=== PATIENT | male | born 1965 | race Two or more races ===

== ENCOUNTER 2017-03-24 05:03 | Observation (INO) | payer OTHER ==
[2017-03-24] MEDS ORDERED: ONDANSETRON 4 MG/2 ML VIAL IVPUSH ONE (05:29)
[2017-03-24] MEDS ORDERED: FAMOTIDINE 20 MG/50 ML IVPB 50 ML IVPB ONE ×2 (05:29→05:48)
[2017-03-24] MEDS ORDERED: SODIUM CHLORIDE 1,000 ML IV STA (05:29)
[2017-03-24] MEDS ORDERED: PANTOPRAZOLE SODIUM 40 MG in SODIUM CHLORIDE 100 ML IVPB ONE (05:29)
--- NOTE | 2017-03-24 05:41 | PDOC ---
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 Patient states while trying to sleep last night, he was unable to and began experiencing trouble breathing. Patient denies CP, Back pain, n/v/d, fever, dysuria, hematuria, rectal bleeding or any other complaints at this time. Presenting Symptoms: Abdominal Pain, Short of Breath Timing/Duration: reports: getting worse Severity/Quality: reports: moderate Location: reports: abdomen Chest Pain Radiation: denies: no radiation, jaw, arms, neck, shoulders, back, sternal notch, epigastric, other Activities at Onset: reports: no specific activity Prior Chest Pain/Cardiac Workup: reports: Other (Aortic Valve Replacement.) Modifying Factors: worse with: antacids, breathing, coughing, defecating, eating , exercise, lying down, morphine, movement, nitroglycerin, oxygen, palpation, rest, other Nitro Today/Relief: No: no nitro taken today, 0.4 mg x 1, 0.4 mg x 2, 0.4 mg x 3 , 0.4 mg x 4, provided by EMS, provided by ED, provided at home, no relief, mild relief, complete relief Aspirin Received prior to arrival (Core Measure): Yes: 81 mg x 1, provided at home Past History - Travel Traveled outside of the country in the last 30 days: No Close contact w/someone who was outside of country & ill: No - Past Medical History Allergies/Adverse Reactions: Allergies Allergy/AdvReac Type Severity Reaction Status Date / Time No Known Allergies Allergy Verified 03/24/17 05:31 Home Medications: Ambulatory Orders Amlodipine Besylate [Norvasc -] 10 mg PO DAILY 03/24/17 Amoxicillin/Potassium Clav [Augmentin 875-125 Tablet] 1 each PO Q12H #28 tablet 03/24/17 Aspirin [ASA -] 81 mg PO DAILY 03/24/17 Prednisone [Deltasone -] 10 mg PO ASDIR #21 tab 03/24/17 Cardiac Disorders: Yes (MVP) Hypercholesterolemia: Yes - Surgical History Cardiac Surgery: Yes (CATH, VALVE REPLACEMENT 2012) - Psycho/Social/Smoking Cessation Hx Anxiety: No Suicidal Ideation: No Smoking History: Never smoked Hx Alcohol Use: Yes (OCC) Drug/Substance Use Hx: No Substance Use Type: None Hx Substance Use Treatment: No Review of Systems - Review of Systems Able to Perform ROS?: Yes Is the patient limited Gabonese proficient: No Constitutional: No: Chills, Fever Respiratory: Yes: Shortness of Breath, SOB at Rest. No: Cough, Stridor, Wheezing Cardiac (ROS): No: Chest Pain, Edema, Lightheadedness, Palpitations, Syncope, Chest Tightness ABD/GI: Yes: Abdominal cramping (Abdominal Pain w/ bloating). No: Constipated, Diarrhea, Nausea, Poor Appetite, Poor Fluid Intake, Rectal Bleeding, Vomiting, Tarry Stools : No: Dysuria, Hematuria Musculoskeletal: No: Back Pain Integumentary: No: Bruising, Erythema, Rash Neurological: No: Headache, Seizure, Dizziness All Other Systems: Reviewed and Negative *Physical Exam - Vital Signs Last Vital Signs Temp Pulse Resp BP Pulse Ox 97.8 F 86 18 129/83 99 03/24/17 05:04 03/24/17 05:04 03/24/17 05:04 03/24/17 05:04 03/24/17 05:04 - Physical Exam General Appearance: Yes: Nourished, Appropriately Dressed, Apparent Distress, Mild Distress. No: Moderate Distress, Severe Distress Neck: positive: Trachea midline, Supple. negative: Decreased range of motion, Stridor, Lymphadenopathy (R), Lymphadenopathy (L) Respiratory/Chest: positive: Lungs Clear, Normal Breath Sounds. negative: Chest Tender, Respiratory Distress, Accessory Muscle Use, Labored Respiration, Rapid RR, Stridor, Wheezing Cardiovascular: positive: Regular Rhythm, Regular Rate. negative: Edema Gastrointestinal/Abdominal: positive: Soft, Increased Bowel Sounds, Distended. negative: Tender, Guarding, Rebound, Tenderness Musculoskeletal: positive: Normal Inspection. negative: CVA Tenderness Extremity: positive: Normal Capillary Refill, Normal Inspection, Normal Range of Motion Integumentary: positive: Dry, Warm, Pale. negative: Cold, Clammy Neurologic: positive: bundle breaker II-XII NML intact, Fully Oriented, Alert, Normal Mood/ Affect, Normal Response, Motor Strength / Heart Score/ECG Review - History History: Slightly suspicious - Electrocardiogram EKG: Normal - Age Age: 45-65 - Risk Factors Risk Factors Heart Score: No Hx Hypercholesterolemia, Yes Hx Hypertension, No Hx Diabetes, No Smoking History, No Positive family hx of cardiac disease, No Hx Obesity Based on the list above the patient has:: 1-2 risk factors - Troponin Troponin: </= normal limit - Score Heart Score - Total: 2 - ECG Impressions Normal ECG: No Non-specific ST Elevation: No Ischemic Changes: No Torsades joan Pointes: No WPW: No Comment:: 03/24/17 06:43 Sinus Rhythm w/ 1 st degree AV Block rate 86bpm ED Treatment Course - LABORATORY CBC & Chemistry Diagram: 03/24/17 05:36 03/24/17 05:36 - ADDITIONAL ORDERS Additional order review: Laboratory Results 03/24/17 03/24/17 03/24/17 05:36 05:36 05:36 INR PTT (Actin FS) Sodium 140 Potassium 4.1 Chloride 104 Carbon Dioxide 28 Anion Gap 8 BUN 20 H D Creatinine 1.1 Creat Clearance w eGFR > 60 Random Glucose 135 H D Calcium 8.5 Total Bilirubin 1.0 D AST 27 ALT 49 Alkaline Phosphatase 44 L D Creatine Kinase 216 Creatine Kinase Index 1.9 CK-MB (CK-2) 3.998 H CK-MB (CK-2) Rel Index Cancelled Troponin I 0.03 Total Protein 7.4 Albumin 4.2 Total Amylase 48 Lipase 134 Urine Color Yellow Urine Appearance Clear Urine pH 5.0 Urine Protein 2+ H Urine Glucose (UA) Negative Urine Ketones Negative Urine Blood Negative Urine Nitrite Negative Urine Bilirubin Negative Urine Urobilinogen Negative Ur Leukocyte Esterase Negative Stool Occult Blood Negative 03/24/17 05:36 INR 1.25 H PTT (Actin FS) 30.5 Sodium Potassium Chloride Carbon Dioxide Anion Gap BUN Creatinine Creat Clearance w eGFR Random Glucose Calcium Total Bilirubin AST ALT Alkaline Phosphatase Creatine Kinase Creatine Kinase Index CK-MB (CK-2) CK-MB (CK-2) Rel Index Troponin I Total Protein Albumin Total Amylase Lipase Urine Color Urine Appearance Urine pH Urine Protein Urine Glucose (UA) Urine Ketones Urine Blood Urine Nitrite Urine Bilirubin Urine Urobilinogen Ur Leukocyte Esterase Stool Occult Blood 03/24/17 05:36 RBC 4.55 MCV 90.2 MCHC 32.9 RDW 14.6 D MPV 10.3 Neutrophils % 69.6 Lymphocytes % 21.7 D Monocytes % 7.5 Eosinophils % 0.8 D Basophils % 0.4 - RADIOLOGY Radiology Studies Ordered: Category Date Time Status ABDOMEN & PELVIS CT WITH CONTR [CT] Stat CT Scan 03/24/17 06:34 Ordered CHEST PA & LAT [RAD] Stat Radiology 03/24/17 05:29 Taken - Medications Given in the ED: ED Medications Discontinued Medications Generic Name Dose Route Start Last Admin Trade Name Nagaq PRN Reason Stop Dose Admin Pantoprazole Sodium 40 mg/ 100 mls @ 200 mls/hr 03/24/17 05:29 03/24/17 05:40 Sodium Chloride IVPB 03/24/17 05:58 200 mls/hr ONCE ONE Administration Famotidine/Sodium Chloride 50 mls @ 100 mls/hr 03/24/17 05:29 03/24/17 06:04 Pepcid 20 Mg Premixed Ivpb - IVPB 03/24/17 05:58 100 mls/hr ONCE ONE Administration Sodium Chloride 1,000 mls @ 1,000 mls/hr 03/24/17 05:29 03/24/17 06:04 Normal Saline - IV 03/24/17 06:28 1,000 mls/hr ASDIR STA Administration Ondansetron HCl 4 mg 03/24/17 05:29 03/24/17 05:40 Zofran Injection IVPUSH 03/24/17 05:30 4 mg ONCE ONE Administration *DC/Admit/Observation/Transfer - Prescriptions Prescriptions: Amoxicillin/Potassium Clav [Augmentin 875-125 Tablet] 1 each PO Q12H #28 tablet Prednisone [Deltasone -] 10 mg PO ASDIR #21 tab
[2017-03-24] MEDS ORDERED: ONDANSETRON 4 MG/2 ML VIAL ONE (05:48)
[2017-03-24] MEDS ORDERED: PANTOPRAZOLE SODIUM 40 MG VIAL ONE (05:48)
[2017-03-24 05:59] LABS: STOOL FOR OCCULT BLOOD NEGATIVE (NEGATIVE)
[2017-03-24 06:01] LABS: BASOPHIL 0.4 % (0-2.0); EOSINOPHIL 0.8 % (0-4.5); MCH 29.6 pg (25.7-33.7); MCHC 32.9 g/dl (32.0-35.9); MEAN CELL VOLUME 90.2 fl (80-96); MEAN PLT VOLUME 10.3 fl (7.5-11.1); NEUTROPHILS 69.6 % (42.8-82.8); PLATELET COUNT 151 K/MM3 (134-434); RDW 14.6 % (11.9-15.9)
[2017-03-24 06:02] LABS: URINE APPEARANCE CLEAR; URINE BILIRUBIN NEGATIVE (NEGATIVE); URINE BLOOD NEGATIVE (NEGATIVE); URINE COLOR YELLOW; URINE GLUCOSE (UA) NEGATIVE (NEGATIVE); URINE KETONE NEGATIVE (NEGATIVE); URINE LEUK ESTERASE NEGATIVE (NEGATIVE); URINE NITRITE NEGATIVE (NEGATIVE); URINE UROBILINOGEN NEGATIVE E.U./dl (0.2-1.0)
[2017-03-24 06:03] LABS: URINE PROTEIN 2+ (NEGATIVE)
[2017-03-24 06:16] LABS: INR 1.25 (0.82-1.09); PROTHROMBIN TIME (PATIENT) 13.8 SEC (9.98-11.88)
[2017-03-24 06:18] LABS: ACTIVATED PTT 30.5 SECONDS (26.9-34.4)
[2017-03-24 06:19] LABS: ALBUMIN 4.2 g/dl (3.4-5.0); AMYLASE 48 U/L (25-115); ANION GAP 8 (8-16); CALCIUM 8.5 mg/dL (8.5-10.1); CO2 28 mmol/L (21-32); COCKROFT - GAULT 112; CREATININE 1.1 mg/dL (0.7-1.3); GLUCOSE,RANDOM 135 mg/dL (74-106); SGOT/AST 27 U/L (15-37); SGPT/ALT 49 U/L (12-78); TOT PROT 7.4 g/dl (6.4-8.2)
[2017-03-24 06:22] LABS: ALK PHOS 44 U/L (45-117); TROPONIN I 0.03 ng/ml (0.00-0.05)
[2017-03-24] MEDS ORDERED: CEFTRIAXONE 1 GM in DEXTROSE 5%-WATER - 50 ML IVPB ONE (06:38)
[2017-03-24] MEDS ORDERED: AZITHROMYCIN IVPB 500 MG in DEXTROSE 5%-WATER - 250 ML IVPB ONE (06:38)
[2017-03-24] MEDS ORDERED: CEFTRIAXONE 50 ML ONE (06:40)
[2017-03-24] MEDS ORDERED: AZITHROMYCIN IVPB 250 ML IVPB ONE (06:40)
[2017-03-24] MEDS ORDERED: methylPREDNISolone NA SUCC 125 MG/2 ML VIAL IVPB ONE (07:01)
[2017-03-24] MEDS ORDERED: methylPREDNISolone NA SUCC 125 MG/2 ML VIAL ONE (07:02)
[2017-03-24 07:50] LABS: URINE MUCUS RARE; URINE RBC <1 /hpf (0-3); URINE WBC <1 /hpf (3-5)
--- NOTE | 2017-03-24 08:51 | PDOC ---
History of Present Illness - General Chief Complaint: Shortness of Breath Stated Complaint: DIFFICULTY BREATHING Time Seen by Provider: 03/24/17 05:21 History Source: Patient - History of Present Illness Timing/Duration: reports: yesterday Associated Symptoms: reports: shortness of breath. denies: chest pain/soreness , cough, fever/chills Past History - Past Medical History Allergies/Adverse Reactions: Allergies Allergy/AdvReac Type Severity Reaction Status Date / Time No Known Allergies Allergy Verified 03/24/17 05:31 Home Medications: Ambulatory Orders Amlodipine Besylate [Norvasc -] 10 mg PO DAILY 03/24/17 Amoxicillin/Potassium Clav [Augmentin 875-125 Tablet] 1 each PO Q12H #28 tablet 03/24/17 Aspirin [ASA -] 81 mg PO DAILY 03/24/17 Prednisone [Deltasone -] 10 mg PO ASDIR #21 tab 03/24/17 Cardiac Disorders: Yes (MVP) Diabetes: No HTN: Yes Hypercholesterolemia: No - Surgical History Cardiac Surgery: Yes (CATH, VALVE REPLACEMENT 2012) - Psycho/Social/Smoking Cessation Hx Anxiety: No Suicidal Ideation: No Smoking History: Never smoked Hx Alcohol Use: Yes (OCC) Drug/Substance Use Hx: No Substance Use Type: None Hx Substance Use Treatment: No Review of Systems - Review of Systems Is the patient limited Estonian proficient: No *Physical Exam - Vital Signs Last Vital Signs Temp Pulse Resp BP Pulse Ox 97.8 F 86 18 129/83 99 03/24/17 05:04 03/24/17 05:04 03/24/17 05:04 03/24/17 05:04 03/24/17 05:04 - Physical Exam General Appearance: Yes: Appropriately Dressed. No: Apparent Distress HEENT: positive: Normal Voice Neck: positive: Supple Respiratory/Chest: negative: Respiratory Distress Gastrointestinal/Abdominal: positive: Soft. negative: Tender Extremity: positive: Normal Inspection Integumentary: positive: Dry, Warm Neurologic: positive: Fully Oriented, Alert, Normal Mood/Affect ED Treatment Course - LABORATORY CBC & Chemistry Diagram: 03/24/17 05:36 03/24/17 05:36 - ADDITIONAL ORDERS Additional order review: Laboratory Results 03/24/17 03/24/17 03/24/17 05:36 05:36 05:36 INR PTT (Actin FS) Sodium 140 Potassium 4.1 Chloride 104 Carbon Dioxide 28 Anion Gap 8 BUN 20 H D Creatinine 1.1 Creat Clearance w eGFR > 60 Random Glucose 135 H D Calcium 8.5 Total Bilirubin 1.0 D AST 27 ALT 49 Alkaline Phosphatase 44 L D Creatine Kinase 216 Creatine Kinase Index 1.9 CK-MB (CK-2) 3.998 H CK-MB (CK-2) Rel Index Cancelled Troponin I 0.03 Total Protein 7.4 Albumin 4.2 Total Amylase 48 Lipase 134 Urine Color Urine Appearance Urine pH Urine Protein Urine Glucose (UA) Urine Ketones Urine Blood Urine Nitrite Urine Bilirubin Urine Urobilinogen Ur Leukocyte Esterase Urine RBC Urine WBC Urine Mucus Stool Occult Blood Blood Type A POSITIVE Antibody Screen Negative 03/24/17 03/24/17 05:36 05:36 INR 1.25 H PTT (Actin FS) 30.5 Sodium Potassium Chloride Carbon Dioxide Anion Gap BUN Creatinine Creat Clearance w eGFR Random Glucose Calcium Total Bilirubin AST ALT Alkaline Phosphatase Creatine Kinase Creatine Kinase Index CK-MB (CK-2) CK-MB (CK-2) Rel Index Troponin I Total Protein Albumin Total Amylase Lipase Urine Color Yellow Urine Appearance Clear Urine pH 5.0 Urine Protein 2+ H Urine Glucose (UA) Negative Urine Ketones Negative Urine Blood Negative Urine Nitrite Negative Urine Bilirubin Negative Urine Urobilinogen Negative Ur Leukocyte Esterase Negative Urine RBC <1 Urine WBC <1 Urine Mucus Rare Stool Occult Blood Negative Blood Type Antibody Screen 03/24/17 05:36 RBC 4.55 MCV 90.2 MCHC 32.9 RDW 14.6 D MPV 10.3 Neutrophils % 69.6 Lymphocytes % 21.7 D Monocytes % 7.5 Eosinophils % 0.8 D Basophils % 0.4 - Medications Given in the ED: ED Medications Discontinued Medications Generic Name Dose Route Start Last Admin Trade Name Freq PRN Reason Stop Dose Admin Pantoprazole Sodium 40 mg/ 100 mls @ 200 mls/hr 03/24/17 05:29 03/24/17 05:40 Sodium Chloride IVPB 03/24/17 05:58 200 mls/hr ONCE ONE Administration Famotidine/Sodium Chloride 50 mls @ 100 mls/hr 03/24/17 05:29 03/24/17 06:04 Pepcid 20 Mg Premixed Ivpb - IVPB 03/24/17 05:58 100 mls/hr ONCE ONE Administration Sodium Chloride 1,000 mls @ 1,000 mls/hr 03/24/17 05:29 03/24/17 06:04 Normal Saline - IV 03/24/17 06:28 1,000 mls/hr ASDIR STA Administration Azithromycin 500 mg/ Dextrose 250 mls @ 250 mls/hr 03/24/17 06:38 03/24/17 07: 01 IVPB 03/24/17 07:37 250 mls/hr ONCE ONE Administration Ceftriaxone Sodium 1 gm/ 50 mls @ 100 mls/hr 03/24/17 06:38 03/24/17 06:38 Dextrose IVPB 03/24/17 07:07 100 mls/hr ONCE ONE Administration Methylprednisolone Sodium Succinate 125 mg 03/24/17 07:01 03/24/17 07:01 Solu-Medrol - IVPB 03/24/17 07:02 125 mg ONCE ONE Administration Ondansetron HCl 4 mg 03/24/17 05:29 03/24/17 05:40 Zofran Injection IVPUSH 03/24/17 05:30 4 mg ONCE ONE Administration Medical Decision Making - Medical Decision Making 03/24/17 08:49 Pt signed out to me at 7am 51-year-old male, history of hypertension, aortic valve replacement, presented to ED with shortness of breath, abdominal pain and bloating. As per prior team chest x-ray revealed pneumonia and patient was treated for CAP. On review of labs, final read of chest x-ray consistence with CHF, no infiltrates seen. BNP pending. Will contact cardiology 03/24/17 08:59 On reassessment, pt well leonard and only reports persistent abd bloating at this time, no abd pain. No edema. As per , the last time pt presented like this, he had his AVR. Pt states he was on lasix while residing in the but not on meds currently. F/u with Dr King. Will contact . BNP pending 03/24/17 09:52 CT w/ signs suggestive of CHF, no acute GI pathology. 03/24/17 10:26 BNP>1800. Will give dose of IV lasix here and discuss dispo w/ cards 03/24/17 11:47 Case d/w Dr Toro, states he will come see pt in ED. to order echo 03/24/17 12:44 Pt admitted to hospitalist *DC/Admit/Observation/Transfer Diagnosis at time of Disposition: Acute on chronic congestive heart failure - Discharge Dispostion Condition at time of disposition: Good Admit: Yes - Prescriptions Prescriptions: Amoxicillin/Potassium Clav [Augmentin 875-125 Tablet] 1 each PO Q12H #28 tablet Prednisone [Deltasone -] 10 mg PO ASDIR #21 tab - Referrals Referrals: Abiodun Forbes MD [Primary Care Provider] - - Patient Instructions - Post Discharge Activity
[2017-03-24] MEDS ORDERED: FUROSEMIDE 40 MG/4 ML INJECTABLE VIAL IVPUSH ONE (10:26)
[2017-03-24] MEDS ORDERED: FUROSEMIDE 40 MG/4 ML INJECTABLE VIAL ONE (11:42)
--- NOTE | 2017-03-24 12:47 | HP ---
CHIEF COMPLAINT: shortness of breath and abd discomfort. PCP: chart says Dr. Haddad however, when ER staff spoke with physician, he states that pt is not his and he needed to be admitted to hospitalist service. HISTORY OF PRESENT ILLNESS: This 51-year-old male, who has a history of hypertension, aortic valve replacement, presented to ED with shortness of breath, abdominal pain and bloating for three days worsening at night with orthopnea noted. Pt found to have elevated BNP, noncompliant with meds including lasix at home and CXR with noted vascular congestion. Pt denies chest pain, dyspnea, nausea, vomiting, fever, chills While in ER abd/pelvic CT performed without any cause noted for abd bloating. He was given a dose of antibiotics suspicious for PNA however after official reading noted to have CHF and no need for ABT Cardiology seen pt while in ER, Dr. Toro, requesting a ECHO which is now ordered. Recent Travel: Social History: Smoking:denies Alcohol: social Drugs: denies Family History: Allergies No Known Allergies Allergy (Verified 03/24/17 05:31) HOME MEDICATIONS: Home Medications Medication Instructions Recorded Amlodipine Besylate [Norvasc -] 10 mg PO DAILY 03/24/17 Amoxicillin/Potassium Clav 1 each PO Q12H #28 tablet 03/24/17 [Augmentin 875-125 Tablet] Aspirin [ASA -] 81 mg PO DAILY 03/24/17 Prednisone [Deltasone -] 10 mg PO ASDIR #21 tab 03/24/17 REVIEW OF SYSTEMS CONSTITUTIONAL: Absent: fever, chills, diaphoresis, generalized weakness, malaise, loss of appetite, weight change HEENT: Absent: rhinorrhea, nasal congestion, throat pain, throat swelling, difficulty swallowing, mouth swelling, ear pain, eye pain, visual changes CARDIOVASCULAR: Absent: chest pain, syncope, palpitations, irregular heart rate, lightheadedness , peripheral edema RESPIRATORY: Absent: cough,(+) shortness of breath,(+) dyspnea with exertion, (+)orthopnea, wheezing, stridor, hemoptysis GASTROINTESTINAL: Absent: abdominal pain, abdominal distension, nausea, vomiting, diarrhea, constipation, melena, hematochezia GENITOURINARY: Absent: dysuria, frequency, urgency, hesitancy, hematuria, flank pain, genital pain MUSCULOSKELETAL: Absent: myalgia, arthralgia, joint swelling, back pain, neck pain SKIN: Absent: rash, itching, pallor HEMATOLOGIC/IMMUNOLOGIC: Absent: easy bleeding, easy bruising, lymphadenopathy, frequent infections ENDOCRINE: Absent: unexplained weight gain, unexplained weight loss, heat intolerance, cold intolerance NEUROLOGIC: Absent: headache, focal weakness or paresthesias, dizziness, unsteady gait, seizure, mental status changes, bladder or bowel incontinence PSYCHIATRIC: Absent: anxiety, depression, suicidal or homicidal ideation, hallucinations. PHYSICAL EXAMINATION Vital Signs - 24 hr 03/24/17 03/24/17 05:04 10:30 Temperature 97.8 F Pulse Rate 86 Pulse Rate [ 90 Carotid] Respiratory 18 20 Rate Blood Pressure 129/83 Blood Pressure 131/95 [Right Arm] O2 Sat by Pulse 99 100 Oximetry (%) GENERAL: Awake, alert, and fully oriented, in no acute distress. HEAD: Normal with no signs of trauma. EYES: Pupils equal, round and reactive to light, extraocular movements intact, sclera anicteric, conjunctiva clear. No lid lag. EARS, NOSE, THROAT: Ears normal, nares patent, oropharynx clear without exudates. Moist mucous membranes. NECK: Normal range of motion, supple without lymphadenopathy, JVD, or masses. LUNGS: Breath sounds equal, congested to auscultation bilaterally. No wheezes, and no crackles. No accessory muscle use. HEART: Regular rate and rhythm, normal S1 and S2 without murmur, rub or gallop. ABDOMEN: Soft, nontender, not distended, normoactive bowel sounds, no guarding, no rebound, no masses. No hepatomegaly or splenomegaly. MUSCULOSKELETAL: Normal range of motion at all joints. No bony deformities or tenderness. No CVA tenderness. UPPER EXTREMITIES: 2+ pulses, warm, well-perfused. No cyanosis. No clubbing. No peripheral edema. LOWER EXTREMITIES: 2+ pulses, warm, well-perfused. No calf tenderness. No peripheral edema. NEUROLOGICAL: Cranial nerves II-XII intact. Normal speech. Normal gait. PSYCHIATRIC: Cooperative. Good eye contact. Appropriate mood and affect. SKIN: Warm, dry, normal turgor, no rashes or lesions noted, normal capillary refill. Laboratory Results - last 24 hr 03/24/17 03/24/17 03/24/17 05:36 05:36 05:36 WBC 6.0 RBC 4.55 Hgb 13.5 Hct 41.0 MCV 90.2 MCHC 32.9 RDW 14.6 D Plt Count 151 MPV 10.3 Neutrophils % 69.6 Lymphocytes % 21.7 D Monocytes % 7.5 Eosinophils % 0.8 D Basophils % 0.4 INR 1.25 H PTT (Actin FS) 30.5 Sodium Potassium Chloride Carbon Dioxide Anion Gap BUN Creatinine Creat Clearance w eGFR Random Glucose Calcium Total Bilirubin AST ALT Alkaline Phosphatase Creatine Kinase Creatine Kinase Index CK-MB (CK-2) CK-MB (CK-2) Rel Index Troponin I B-Natriuretic Peptide Total Protein Albumin Total Amylase Lipase Urine Color Yellow Urine Appearance Clear Urine pH 5.0 [address] [place] 1.025 Urine Protein 2+ H Urine Glucose (UA) Negative Urine Ketones Negative Urine Blood Negative Urine Nitrite Negative Urine Bilirubin Negative Urine Urobilinogen Negative Ur Leukocyte Esterase Negative Urine RBC <1 Urine WBC <1 Urine Mucus Rare Stool Occult Blood Negative Blood Type Antibody Screen 03/24/17 03/24/17 03/24/17 05:36 05:36 05:36 WBC RBC Hgb Hct MCV MCHC RDW Plt Count MPV Neutrophils % Lymphocytes % Monocytes % Eosinophils % Basophils % INR PTT (Actin FS) Sodium 140 Potassium 4.1 Chloride 104 Carbon Dioxide 28 Anion Gap 8 BUN 20 H D Creatinine 1.1 Creat Clearance w eGFR > 60 Random Glucose 135 H D Calcium 8.5 Total Bilirubin 1.0 D AST 27 ALT 49 Alkaline Phosphatase 44 L D Creatine Kinase 216 Creatine Kinase Index 1.9 CK-MB (CK-2) 3.998 H CK-MB (CK-2) Rel Index Cancelled Troponin I 0.03 B-Natriuretic Peptide 1890.11 H Total Protein 7.4 Albumin 4.2 Total Amylase 48 Lipase 134 Urine Color Urine Appearance Urine pH Ur Specific [place] Urine Protein Urine Glucose (UA) Urine Ketones Urine Blood Urine Nitrite Urine Bilirubin Urine Urobilinogen Ur Leukocyte Esterase Urine RBC Urine WBC Urine Mucus Stool Occult Blood Blood Type A POSITIVE Antibody Screen Negative ASSESSMENT/PLAN: This 51 yr old male who is non compliant with medications and following with his PMD, presents to ER with a finding of CHF excerbation and a PMH of CHF 1. CHF -continue lasix daily (recieved 40 iv in ER) -echo per cards -appreciate cards consult -daily weight -strict I and O -no further ABT needed at this time -meds per cards -admit to tele inpatient. Visit type - Emergency Visit Emergency Visit: Yes ED Registration Date: 03/24/17 Care time: The patient presented to the Emergency Department on the above date and was hospitalized for further evaluation of their emergent condition. - New Patient This patient is new to me today: Yes Date on this admission: 03/24/17 - Critical Care Critical Care patient: No
--- NOTE | 2017-03-24 12:49 | EKG ---
Test Reason : Blood Pressure : / mmHG Vent. Rate : 086 BPM Atrial Rate : 086 BPM P-R Int : 280 ms QRS Dur : 100 ms QT Int : 394 ms P-R-T Axes : 032 031 052 degrees QTc Int : 471 ms SINUS RHYTHM WITH 1ST DEGREE A-V BLOCK POSSIBLE LEFT ATRIAL ENLARGEMENT BORDERLINE ECG NO PREVIOUS ECGS AVAILABLE Confirmed by JAYDEN SAUNDERS MD ([id number]) on 03/24/2017 12:48:25 PM Referred By: Confirmed By:JAYDEN SAUNDERS MD
--- NOTE | 2017-03-24 13:08 | CON.CARD ---
Consult Consult Specialty:: Cardiology - History of Present Illness History of Present Illness: 51yo Male patient w/ PmHx: HTN, Mitral and aortic valce replacements severely reduced EF presents to ED c/o diff breathing, abd pain/bloating x 3 days, and insomnia. Patient states while trying to sleep last night, he was unable to and began experiencing trouble breathing. Patient denies CP, Back pain, n/v/d, fever , dysuria, hematuria, rectal bleeding or any other complaints at this time. - History Source History Provided By: Patient, Medical Record - Past Medical History Cardio/Vascular: Yes: CHF, HTN, Other (s/p mvr/avr) - Alcohol/Substance Use Hx Alcohol Use: Yes (OCC) - Smoking History Smoking history: Never smoked Home Medications - Allergies Allergies/Adverse Reactions: Allergies Allergy/AdvReac Type Severity Reaction Status Date / Time No Known Allergies Allergy Verified 03/24/17 05:31 - Home Medications Home Medications: Ambulatory Orders Amlodipine Besylate [Norvasc -] 10 mg PO DAILY 03/24/17 Amoxicillin/Potassium Clav [Augmentin 875-125 Tablet] 1 each PO Q12H #28 tablet 03/24/17 Aspirin [ASA -] 81 mg PO DAILY 03/24/17 Prednisone [Deltasone -] 10 mg PO ASDIR #21 tab 03/24/17 Review of Systems - Review of Systems Constitutional: reports: No Symptoms Eyes: reports: No Symptoms HENT: reports: No Symptoms Neck: reports: No Symptoms Cardiovascular: reports: No Symptoms Respiratory: reports: SOB, SOB on Exertion Gastrointestinal: reports: No Symptoms Genitourinary: reports: No Symptoms Breasts: reports: No Symptoms Reported Musculoskeletal: reports: No Symptoms Integumentary: reports: No Symptoms Neurological: reports: No Symptoms Endocrine: reports: No Symptoms Hematology/Lymphatic: reports: No Symptoms Psychiatric: reports: No Symptoms Vital Signs: Vital Signs Temperature 97.8 F 03/24/17 05:04 Pulse Rate 90 03/24/17 10:30 Respiratory Rate 20 03/24/17 10:30 Blood Pressure 131/95 03/24/17 10:30 O2 Sat by Pulse Oximetry (%) 100 03/24/17 10:30 Constitutional: Yes: Well Nourished, No Distress, Calm Eyes: Yes: WNL, Conjunctiva Clear, EOM Intact HENT: Yes: WNL, Atraumatic, Normocephalic Neck: Yes: WNL, Supple, Trachea Midline Respiratory: Yes: WNL, Regular, CTA Bilaterally Gastrointestinal: Yes: WNL, Normal Bowel Sounds Renal/: Yes: WNL Cardiovascular: Yes: WNL, Regular Rate and Rhythm Heart Sounds: Yes: S1, S2 Musculoskeletal: Yes: WNL Extremities: Yes: WNL Integumentary: Yes: WNL Neurological: Yes: WNL, Alert, Oriented ...Motor Strength: WNL Psychiatric: Yes: WNL, Alert, Oriented - Other Data Labs, Other Data: INR, PTT INR 1.25 (0.82-1.09) H 03/24/17 05:36 Laboratory Tests 03/24/17 03/24/17 03/24/17 05:36 05:36 05:36 WBC 6.0 RBC 4.55 Hgb 13.5 Hct 41.0 MCV 90.2 MCHC 32.9 RDW 14.6 D Plt Count 151 MPV 10.3 Neutrophils % 69.6 Lymphocytes % 21.7 D Monocytes % 7.5 Eosinophils % 0.8 D Basophils % 0.4 INR 1.25 H PTT (Actin FS) 30.5 Sodium Potassium Chloride Carbon Dioxide Anion Gap BUN Creatinine Creat Clearance w eGFR Random Glucose Calcium Total Bilirubin AST ALT Alkaline Phosphatase Creatine Kinase Creatine Kinase Index CK-MB (CK-2) CK-MB (CK-2) Rel Index Troponin I B-Natriuretic Peptide Total Protein Albumin Total Amylase Lipase Urine Color Yellow Urine Appearance Clear Urine pH 5.0 Ur Specific [place] 1.025 Urine Protein 2+ H Urine Glucose (UA) Negative Urine Ketones Negative Urine Blood Negative Urine Nitrite Negative Urine Bilirubin Negative Urine Urobilinogen Negative Ur Leukocyte Esterase Negative Urine RBC <1 Urine WBC <1 Urine Mucus Rare Stool Occult Blood Negative Blood Type Antibody Screen 03/24/17 03/24/17 03/24/17 05:36 05:36 05:36 WBC RBC Hgb Hct MCV MCHC RDW Plt Count MPV Neutrophils % Lymphocytes % Monocytes % Eosinophils % Basophils % INR PTT (Actin FS) Sodium 140 Potassium 4.1 Chloride 104 Carbon Dioxide 28 Anion Gap 8 BUN 20 H D Creatinine 1.1 Creat Clearance w eGFR > 60 Random Glucose 135 H D Calcium 8.5 Total Bilirubin 1.0 D AST 27 ALT 49 Alkaline Phosphatase 44 L D Creatine Kinase 216 Creatine Kinase Index 1.9 CK-MB (CK-2) 3.998 H CK-MB (CK-2) Rel Index Cancelled Troponin I 0.03 B-Natriuretic Peptide 1890.11 H Total Protein 7.4 Albumin 4.2 Total Amylase 48 Lipase 134 Urine Color Urine Appearance Urine pH Ur Specific [place] Urine Protein Urine Glucose (UA) Urine Ketones Urine Blood Urine Nitrite Urine Bilirubin Urine Urobilinogen Ur Leukocyte Esterase Urine RBC Urine WBC Urine Mucus Stool Occult Blood Blood Type A POSITIVE Antibody Screen Negative Imaging - Results Chest X-ray: Image Reviewed (cm s/p mvr chf) EKG: Image Reviewed (sr rep abn) Assessment/Plan non ischemic valvular CMP h/io MVP/severe MR s/p MVR bioprosthetic 2012 Dilated LV with severely reduced EF, apex not well visualized / apical thrombus cannot be r/o systolic chf acute noncomplience with rx and f/u plan IV lasix telemetry hailey I coreg will f/u
[2017-03-24 14:36] VITALS: BMI 28.8
[2017-03-24 14:50] LABS: TROPONIN I 0.02 ng/ml (0.00-0.05)
[2017-03-24] MEDS: CARVEDILOL 3.125 MG TABLET (FP) PO SCH ×2 (16:03→22:14)
[2017-03-24] MEDS: QUINAPRIL HCL 5 MG TABLET (FP) PO SCH (16:04)
[2017-03-24] MEDS: HEPARIN NA (PORCINE) 5,000 UNITS/ML 1ML VIAL SQ SCH ×2 (16:04→22:14)
[2017-03-24] MEDS ORDERED: diphenhydrAMINE HCL 25 MG CAPSULE (FP) PO PRN (22:15)
[2017-03-25] MEDS: HEPARIN NA (PORCINE) 5,000 UNITS/ML 1ML VIAL SQ SCH (06:29)
[2017-03-25 07:56] LABS: ALBUMIN 3.9 g/dl (3.4-5.0); ANION GAP 6 (8-16); CO2 31 mmol/L (21-32); GLUCOSE,RANDOM 97 mg/dL (74-106)
[2017-03-25 08:00] LABS: MCH 30.3 pg (25.7-33.7); MCHC 33.4 g/dl (32.0-35.9); MEAN CELL VOLUME 90.8 fl (80-96); MEAN PLT VOLUME 10.7 fl (7.5-11.1); PLATELET COUNT 132 K/MM3 (134-434); RDW 14.2 % (11.9-15.9); WHITE BLOOD COUNT 5.5 K/mm3 (4.0-10.0)
[2017-03-25 08:04] LABS: ALK PHOS 45 U/L (45-117); BILIRUBIN,TOTAL 1.3 mg/dL (0.2-1.0); COCKROFT - GAULT 104.19; CREATININE 1.2 mg/dL (0.7-1.3); SGOT/AST 25 U/L (15-37); SGPT/ALT 48 U/L (12-78); TOT PROT 7.2 g/dl (6.4-8.2)
[2017-03-25 08:41] VITALS: BP 127/83; PULSE 79; TEMP 98.1
[2017-03-25] MEDS: CARVEDILOL 3.125 MG TABLET (FP) PO SCH (09:33)
[2017-03-25] MEDS: QUINAPRIL HCL 5 MG TABLET (FP) PO SCH (09:33)
--- NOTE | 2017-03-25 09:47 | PN ---
Progress Note, Physician Chief Complaint: Pt A&Ox3; no chest pain, dizziness, or shortness of breath. History of Present Illness: 51yo Male (b. [facility]) w/ PmHx:nonobstructive cardiomyopathy ( normal coronaries and bioprosthetic MV replacement 2013 in the [facility]), HTN, came to ED c/o diff breathing, abd pain/bloating x 3 days, and insomnia. Patient states while trying to sleep last night, he was unable to and began experiencing trouble breathing. Patient denies CP, Back pain, n/v/d, fever, dysuria, hematuria, rectal bleeding or any other complaints at this time. Presenting Symptoms: Abdominal Pain, Short of Breath Timing/Duration: reports: getting worse Severity/Quality: reports: moderate Location: reports: abdomen Chest Pain Radiation: denies: no radiation, jaw, arms, neck, shoulders, back, sternal notch, epigastric, other - Current Medication List Current Medications: Active Medications Amlodipine Besylate (Norvasc -) 10 mg PO DAILY [facility] Last Admin: 03/25/17 09:33 Dose: 10 mg Aspirin (Asa -) 81 mg PO DAILY [facility] Last Admin: 03/25/17 09:33 Dose: 81 mg Carvedilol (Coreg -) 3.125 mg PO BID [facility] Last Admin: 03/25/17 09:33 Dose: 3.125 mg Diphenhydramine HCl (Benadryl -) 25 mg PO HS PRN PRN Reason: INSOMNIA Last Admin: 03/24/17 22:49 Dose: 25 mg Furosemide (Lasix Injection -) 40 mg IVPB DAILY [facility] Last Admin: 03/25/17 09:33 Dose: 40 mg Heparin Sodium (Porcine) (Heparin -) 5,000 unit SQ TID [facility] Last Admin: 03/25/17 06:29 Dose: 5,000 unit Quinapril HCl (Accupril -) 5 mg PO DAILY [facility] Last Admin: 03/25/17 09:33 Dose: 5 mg - Objective Vital Signs: Vital Signs Temperature 98.1 F 03/25/17 08:40 Pulse Rate 79 03/25/17 08:40 Respiratory Rate 20 03/25/17 08:40 Blood Pressure 127/83 03/25/17 08:40 O2 Sat by Pulse Oximetry (%) 96 03/24/17 21:00 Constitutional: Yes: Well Nourished, Anxious Eyes: Yes: WNL HENT: Yes: WNL Neck: Yes: WNL Cardiovascular: Yes: Regular Rate and Rhythm, S1 (split) Respiratory: Yes: Regular Gastrointestinal: Yes: Soft ...Rectal Exam: Yes: Deferred Genitourinary: No: Anuria Breast(s): Yes: WNL Musculoskeletal: Yes: WNL Extremities: Yes: WNL Edema: No Peripheral Pulses WNL: Yes Integumentary: Yes: WNL Neurological: Yes: WNL Psychiatric: Yes: WNL Labs: CBC, BMP 03/25/17 05:35 03/25/17 05:35 INR, PTT INR 1.25 (0.82-1.09) H 03/24/17 05:36 Abnormal Lab Results 03/24/17 03/25/17 03/25/17 05:36 05:35 05:35 Plt Count 132 L Anion Gap 6 L BUN 19 H Total Bilirubin 1.3 H D B-Natriuretic Peptide 1890.11 H 1891.30 H - ....Imaging Chest X-ray: Image Reviewed EKG: Image Reviewed (NSR; 1st degree AVBlock) Problem List - Problems (1) Acute on chronic systolic (congestive) heart failure Assessment/Plan: Nonischemic cardiomyopathy (patent coronary arteries on 2013 angioigram); severely reduced LVEF. S/p bioprosthetic MV replacement. Continue carvedilol, lisinoptil, and furosemide.; add spironolactone. From a caediac standpoint, pt may be followed as an outpatient; medication doses will be optimized over the next several weeks. If LVEF does not improve after optimization, pt will require an ICD. This was discussed with him today; Code(s): I50.23 - ACUTE ON CHRONIC SYSTOLIC (CONGESTIVE) HEART FAILURE (2) History of mitral valve replacement with bioprosthetic valve Code(s): Z95.3 - PRESENCE OF XENOGENIC HEART VALVE (3) HTN (hypertension) Code(s): I10 - ESSENTIAL (PRIMARY) HYPERTENSION
[2017-03-25] MEDS ORDERED: SPIRONOLACTONE 25 MG TABLET (FP) PO SCH (10:00)
[2017-03-25] MEDS ORDERED: FUROSEMIDE 40 MG/4 ML INJECTABLE VIAL IVPB SCH (10:00)
[2017-03-25] MEDS ORDERED: ASPIRIN 81 MG CHEWABLE TABLETS PO SCH (10:00)
[2017-03-25] MEDS ORDERED: FUROSEMIDE 20 MG TABLET (FP) PO SCH (10:00)
[2017-03-25] MEDS ORDERED: amLODIPine BESYLATE 10 MG TABLET (FP) PO SCH (10:00)
--- NOTE | 2017-03-26 22:09 | DS ---
Physical Exam: SUBJECTIVE: Patient seen and examined at bedside. He denies all c/o and has been cleared by cards. OBJECTIVE: PHYSICAL EXAM GENERAL: The patient is awake, alert, and fully oriented, in no acute distress. HEAD: Normal with no signs of trauma. EYES: PERRL, extraocular movements intact, sclera anicteric, conjunctiva clear. ENT: Ears normal, nares patent, oropharynx clear without exudates, moist mucous membranes. NECK: Trachea midline, full range of motion, supple. LUNGS: Breath sounds equal, clear to auscultation bilaterally, no wheezes, no crackles, no accessory muscle use. HEART: Regular rate and rhythm, S1, S2 without murmur, rub or gallop. ABDOMEN: Soft, nontender, nondistended, normoactive bowel sounds, no guarding, no rebound, no hepatosplenomegaly, no masses. EXTREMITIES: 2+ pulses, warm, well-perfused, no edema. NEUROLOGICAL: Cranial nerves II through XII grossly intact. Normal speech, gait not observed. PSYCH: Normal mood, normal affect. SKIN: Warm, dry, normal turgor, no rashes or lesions noted. LABS Laboratory Tests 3 03/24/17 03/24/17 03/24/17 05:36 05:36 05:36 WBC 6.0 RBC 4.55 Hgb 13.5 Hct 41.0 MCV 90.2 MCHC 32.9 RDW 14.6 D Plt Count 151 MPV 10.3 Neutrophils % 69.6 Lymphocytes % 21.7 D Monocytes % 7.5 Eosinophils % 0.8 D Basophils % 0.4 INR 1.25 H PTT (Actin FS) 30.5 Sodium Potassium Chloride Carbon Dioxide Anion Gap BUN Creatinine Creat Clearance w eGFR Random Glucose Calcium Total Bilirubin AST ALT Alkaline Phosphatase Creatine Kinase Creatine Kinase Index CK-MB (CK-2) CK-MB (CK-2) Rel Index Troponin I B-Natriuretic Peptide Total Protein Albumin Total Amylase Lipase Urine Color Yellow Urine Appearance Clear Urine pH 5.0 Ur Specific [place] 1.025 Urine Protein 2+ H Urine Glucose (UA) Negative Urine Ketones Negative Urine Blood Negative Urine Nitrite Negative Urine Bilirubin Negative Urine Urobilinogen Negative Ur Leukocyte Esterase Negative Urine RBC <1 Urine WBC <1 Urine Mucus Rare Stool Occult Blood Negative Blood Type Antibody Screen 3 05/24/17 05/24/17 05/24/17 05:36 05:36 05:36 WBC RBC Hgb Hct MCV MCHC RDW Plt Count MPV Neutrophils % Lymphocytes % Monocytes % Eosinophils % Basophils % INR PTT (Actin FS) Sodium 140 Potassium 4.1 Chloride 104 Carbon Dioxide 28 Anion Gap 8 BUN 20 H D Creatinine 1.1 Creat Clearance w eGFR > 60 Random Glucose 135 H D Calcium 8.5 Total Bilirubin 1.0 D AST 27 ALT 49 Alkaline Phosphatase 44 L D Creatine Kinase 216 Creatine Kinase Index 1.9 CK-MB (CK-2) 3.998 H CK-MB (CK-2) Rel Index Cancelled Troponin I 0.03 B-Natriuretic Peptide 1890.11 H Total Protein 7.4 Albumin 4.2 Total Amylase 48 Lipase 134 Urine Color Urine Appearance Urine pH Ur Specific [place] Urine Protein Urine Glucose (UA) Urine Ketones Urine Blood Urine Nitrite Urine Bilirubin Urine Urobilinogen Ur Leukocyte Esterase Urine RBC Urine WBC Urine Mucus Stool Occult Blood Blood Type A POSITIVE Antibody Screen Negative 3 03/24/17 03/24/17 03/25/17 13:37 13:37 05:35 WBC 5.5 RBC 4.72 Hgb 14.3 Hct 42.9 MCV 90.8 MCHC 33.4 RDW 14.2 Plt Count 132 L MPV 10.7 Neutrophils % Lymphocytes % Monocytes % Eosinophils % Basophils % INR PTT (Actin FS) Sodium Potassium Chloride Carbon Dioxide Anion Gap BUN Creatinine Creat Clearance w eGFR Random Glucose Calcium Total Bilirubin AST ALT Alkaline Phosphatase Creatine Kinase 192 Creatine Kinase Index 1.7 CK-MB (CK-2) 3.406 CK-MB (CK-2) Rel Index Cancelled Troponin I 0.02 D B-Natriuretic Peptide Total Protein Albumin Total Amylase Lipase Urine Color Urine Appearance Urine pH Ur Specific [place] Urine Protein Urine Glucose (UA) Urine Ketones Urine Blood Urine Nitrite Urine Bilirubin Urine Urobilinogen Ur Leukocyte Esterase Urine RBC Urine WBC Urine Mucus Stool Occult Blood Blood Type Antibody Screen 3 03/25/17 05:35 WBC RBC Hgb Hct MCV MCHC RDW Plt Count MPV Neutrophils % Lymphocytes % Monocytes % Eosinophils % Basophils % INR PTT (Actin FS) Sodium 141 Potassium 4.3 Chloride 104 Carbon Dioxide 31 Anion Gap 6 L BUN 19 H Creatinine 1.2 Creat Clearance w eGFR > 60 Random Glucose 97 D Calcium 9.0 Total Bilirubin 1.3 H D AST 25 ALT 48 Alkaline Phosphatase 45 Creatine Kinase Creatine Kinase Index CK-MB (CK-2) CK-MB (CK-2) Rel Index Troponin I B-Natriuretic Peptide 1891.30 H Total Protein 7.2 Albumin 3.9 Total Amylase Lipase Urine Color Urine Appearance Urine pH Ur Specific [place] Urine Protein Urine Glucose (UA) Urine Ketones Urine Blood Urine Nitrite Urine Bilirubin Urine Urobilinogen Ur Leukocyte Esterase Urine RBC Urine WBC Urine Mucus Stool Occult Blood Blood Type Antibody Screen HOSPITAL COURSE: Date of Admission:03/24/17 Date of Discharge: 03/26/17 This 51 yr old male with h/o HTN, MVR, AVR and CHF who is non-compliant with medications and following with his PMD, presented to ER with a finding of CHF excerbation. CHF -echo- Dilated LV with severely reduced EF, apex not well visualized / apical thrombus cannot be r/o -continue Coreg 3.125mg bid -continue Norvasc 10mg qd -continue spironolactone 25mg qd -continue lasix 40mg qd -cleared by lennie Bagley for continued outpatient w/u and optimization Dispo- Discharge to home with cards f/u in 1 month Minutes to complete discharge: 20 Discharge Summary Reason For Visit: CONGESTIVE HEART FAILURE Condition: Good - Instructions Diet, Activity, Other Instructions: Weigh yourself every day and write it down in a notebook. 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 Eat a low salt diet. Read the nutrition label and add all sodium. Keep below 2000mg every day. Take your medication as prescribed. Go to emergency department for any chest pain, shortness of breath, leg swelling , dizziness, nausea, vomiting or any other complaints. Referrals: Abiodun Forbes MD [Primary Care Provider] - Disposition: HOME - Home Medications Comprehensive Discharge Medication List: Ambulatory Orders Aspirin [ASA -] 81 mg PO DAILY #30 tab 03/25/17 Carvedilol 3.125 mg PO DAILY #30 tab 03/25/17 Diphenhydramine HCl [Benadryl Capsule -] 25 mg PO HS PRN #15 tab 03/25/17 Enalapril Maleate 2.5 mg PO DAILY #30 tab 03/25/17 Furosemide [Lasix -] 20 mg PO DAILY #30 tablet 03/25/17 Spironolactone [Aldactone -] 25 mg PO DAILY #30 tablet 03/25/17 This patient is new to me today: Yes Date on this admission: 03/29/17 Emergency Visit: Yes ED Registration Date: 03/24/17 Care time: The patient presented to the Emergency Department on the above date and was hospitalized for further evaluation of their emergent condition. Critical Care patient: No - Discharge Referral Referred to [facility] Med P.C.: No
== END 2017-03-25 13:45 | disposition home or self-care (01) ==
LOC: JER 05:03 → INTOOBSV 12:43 → JERBED 12:43 → J4W 13:55
PROVIDERS: ADMIT Internal Medicine; ATTEND Nurse Practitioner Family
PROC: 3E03329 Introduction of Other Anti-infective into Peripheral Vein, Percutaneous Approach (ICD-10-PCS; principal; 2017-03-24)
PROC: 3E033GC Introduction of Other Therapeutic Substance into Peripheral Vein, Percutaneous Approach (ICD-10-PCS; 2017-03-24)
PROC: 3E0337Z Introduction of Electrolytic and Water Balance Substance into Peripheral Vein, Percutaneous Approach (ICD-10-PCS; 2017-03-24)
DX: I50.23 Acute on chronic systolic (congestive) heart failure (principal); I10 Essential (primary) hypertension; Z95.3 Presence of xenogenic heart valve; Z79.82 Long term (current) use of aspirin
CPT/HCPCS: 36415; 71020-TC; 74177-TC; 80053; 81003; 81015; 82150; 82272; 82550; 82553; 83690; 83880; 84484; 85025; 85027; 85610; 85730; 86850; 86900; 86901; 87040; 87086; 93005; 93010; 93306-TC; 99284-25; G0378; J1644

== ENCOUNTER 2017-03-30 01:35 | Inpatient (IN) | payer OTHER ==
--- NOTE | 2017-03-30 01:42 | PDOC ---
History of Present Illness - General History Source: Patient Exam Limitations: No Limitations - History of Present Illness Initial Comments: 03/30/17 01:48 The patient is a 51-year-old male, with a significant past medical history of hypertension, aortic valve replacement (2012), who presents to ED with shortness of breath and weakness s/p taking Benadryl. Pt states that he took the pill before bed and soon after began to feel sweaty, short of breath, and weak. Pts symptoms have now resolved. The patient denies any fever, chills, nausea, vomiting, diarrhea, or abdominal pain. The patient denies any chest pain. 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 <Christina Ibarra - Last Filed: 03/30/17 01:48> <Nora Berry - Last Filed: 04/02/17 09:45> - General Stated Complaint: DIFFICULTY BREATHING Time Seen by Provider: 03/30/17 01:37 Past History <Christina Ibarra - Last Filed: 03/30/17 01:48> - Past Medical History Cardiac Disorders: Yes (MVP) Diabetes: No HTN: Yes Hypercholesterolemia: No - Surgical History Cardiac Surgery: Yes (CATH, VALVE REPLACEMENT 2012) Cholecystectomy: Yes - Psycho/Social/Smoking Cessation Hx Anxiety: No Suicidal Ideation: No Smoking History: Never smoked Hx Alcohol Use: Yes (OCC) Drug/Substance Use Hx: No Substance Use Type: None Hx Substance Use Treatment: No <Nora Berry - Last Filed: 04/02/17 09:45> - Past Medical History Allergies/Adverse Reactions: Allergies Allergy/AdvReac Type Severity Reaction Status Date / Time No Known Allergies Allergy Verified 03/30/17 01:42 Home Medications: Ambulatory Orders Aspirin [ASA -] 81 mg PO DAILY #30 tab 03/25/17 Enalapril Maleate 2.5 mg PO DAILY #30 tab 03/25/17 Atorvastatin Ca [Lipitor] 20 mg PO HS #30 tablet 04/01/17 Carvedilol [Coreg -] 6.25 mg PO BID #60 tablet 04/01/17 Furosemide [Lasix] 40 mg PO DAILY #30 tablet 04/01/17 Hydralazine HCl [Apresoline -] 10 mg PO BID #60 tablet 04/01/17 Isosorbide Dinitrate [Isordil -] 5 mg PO BIDISORDIL #60 tablet 04/01/17 Lorazepam [Ativan] 1 mg PO BID PRN #20 tablet MDD 2mg 04/01/17 Review of Systems - Review of Systems Able to Perform ROS?: Yes Comments:: 03/30/17 01:49 GENERAL/CONSTITUTIONAL: No fever or chills. +weakness, diaphoresis HEAD, EYES, EARS, NOSE AND THROAT: No change in vision. No ear pain or discharge. No sore throat. CARDIOVASCULAR: No chest pain. +shortness of breath. RESPIRATORY: No cough, wheezing, or hemoptysis. GASTROINTESTINAL: No nausea, vomiting, diarrhea or constipation. GENITOURINARY: No dysuria, frequency, or change in urination. MUSCULOSKELETAL: No joint or muscle swelling or pain. No neck or back pain. SKIN: No rash NEUROLOGIC: No headache, vertigo, loss of consciousness, or change in strength/ sensation. ENDOCRINE: No increased thirst. No abnormal weight change. HEMATOLOGIC/LYMPHATIC: No anemia, easy bleeding, or history of blood clots. ALLERGIC/IMMUNOLOGIC: No hives or skin allergy. <Christina Ibarra - Last Filed: 03/30/17 01:48> *Physical Exam - Vital Signs Last Vital Signs Temp Pulse Resp BP Pulse Ox 97.4 F L 81 16 135/100 99 03/30/17 01:42 03/30/17 01:42 03/30/17 01:42 03/30/17 01:42 03/30/17 01:42 <Christina Ibarra - Last Filed: 03/30/17 01:48> - Physical Exam Comments: GENERAL: Awake, alert, and fully oriented, in no acute distress HEAD: No signs of trauma EYES: PERRLA, EOMI, sclera anicteric, conjunctiva clear ENT: Auricles normal inspection, hearing grossly normal, nares patent, oropharynx clear without exudates. Moist mucosa NECK: Normal ROM, supple, no lymphadenopathy, JVD, or masses LUNGS: Breath sounds equal, clear to auscultation bilaterally. No wheezes, and no crackles HEART: Regular rate and rhythm, normal S1 and S2, no murmurs, rubs or gallops ABDOMEN: Soft, nontender, normoactive bowel sounds. No guarding, no rebound. No masses EXTREMITIES: Normal range of motion, no edema. No clubbing or cyanosis. No cords, erythema, or tenderness NEUROLOGICAL: Cranial nerves II through XII grossly intact. Normal speech, normal gait SKIN: Warm, Dry, normal turgor, no rashes or lesions noted. <Nora Berry - Last Filed: 04/02/17 09:45> Heart Score/ECG Review - History History: Moderately suspicious - Electrocardiogram EKG: Normal - Age Age: 45-65 - Risk Factors Risk Factors Heart Score: Yes Hx Hypercholesterolemia, Yes Hx Hypertension, Yes Positive family hx of cardiac disease Based on the list above the patient has:: >/=3 risk factors or Hx atherosclerotic disease - Troponin Troponin: </= normal limit - Score Heart Score - Total: 4 - ECG Impressions Comment:: EKG read 01:47- sinus rhythm 85 bpm with 1st deg AV block <Nora Berry - Last Filed: 04/02/17 09:45> ED Treatment Course - LABORATORY CBC & Chemistry Diagram: 03/31/17 05:35 04/01/17 06:00 <Nora Berry - Last Filed: 04/02/17 09:45> Medical Decision Making - Medical Decision Making Pt no longer has a PMD due to insurance change. Will admit to hospitalist. Consult to Dr. Bagley, who follows him for cardio. <Nora Berry - Last Filed: 04/02/17 09:45> *DC/Admit/Observation/Transfer - Attestations Scribe Attestion: 03/30/17 01:51 Documentation prepared by Christina Ibarra, acting as medical sonographer for oNra Berry MD. <Christina Ibarra - Last Filed: 03/30/17 01:48> - Discharge Dispostion Admit: Yes <Nora Berry - Last Filed: 04/02/17 09:45> Diagnosis at time of Disposition: CHF exacerbation Qualifiers: Congestive heart failure type: unspecified congestive heart failure type Qualified Code(s): I50.9 - Heart failure, unspecified - Discharge Dispostion Disposition: HOME Condition at time of disposition: Improved - Prescriptions - Referrals
[2017-03-30 02:10] LABS: BASOPHIL 0.6 % (0-2.0); EOSINOPHIL 1.3 % (0-4.5); MCH 29.9 pg (25.7-33.7); MEAN CELL VOLUME 90.6 fl (80-96); MEAN PLT VOLUME 9.2 fl (7.5-11.1); PLATELET COUNT 174 K/MM3 (134-434); RDW 14.1 % (11.9-15.9)
[2017-03-30 02:42] LABS: INR 1.22 (0.82-1.09); PROTHROMBIN TIME (PATIENT) 13.5 SEC (9.98-11.88)
[2017-03-30 02:45] LABS: ALBUMIN 4.3 g/dl (3.4-5.0); ANION GAP 7 (8-16); BILIRUBIN,TOTAL 0.9 mg/dL (0.2-1.0); CALCIUM 9.3 mg/dL (8.5-10.1); CO2 31 mmol/L (21-32); COCKROFT - GAULT 103.26; CREATININE 1.2 mg/dL (0.7-1.3); GLUCOSE,RANDOM 139 mg/dL (74-106); SGOT/AST 28 U/L (15-37); SGPT/ALT 49 U/L (12-78); TOT PROT 7.8 g/dl (6.4-8.2)
[2017-03-30 02:48] LABS: ALK PHOS 48 U/L (45-117); TROPONIN I < 0.02 ng/ml (0.00-0.05)
[2017-03-30] MEDS ORDERED: FUROSEMIDE 40 MG/4 ML INJECTABLE VIAL IVPUSH ONE ×2 (04:47→04:55)
--- NOTE | 2017-03-30 04:55 | HP ---
CHIEF COMPLAINT: SOB PCP: None Marble Worker: Dr. Bagley HISTORY OF PRESENT ILLNESS: This is a 51 y/o male with a significant medical history of Hypertension, MVP/ Severe MR, s/p Mitral Valve replacement ([place], 2012). Who presents to the emergency department with SOB and weakness after taking Benadryl and his other meds. Patient reports orthopnea, having to sleep with 2 pillows. Patient denies fever, chills, CP, AP, N/V/D, constipation, dysuria. 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 Family History: Father: DM, [place], age 54 Mother: DM, Uterine Ca, Allergies No Known Allergies Allergy (Verified 03/30/17 01:42) HOME MEDICATIONS: Home Medications Medication Instructions Recorded Aspirin [ASA -] 81 mg PO DAILY #30 tab 03/25/17 Carvedilol 3.125 mg PO DAILY #30 tab 03/25/17 Diphenhydramine HCl [Benadryl 25 mg PO HS PRN #15 tab 03/25/17 Capsule -] Enalapril Maleate 2.5 mg PO DAILY #30 tab 03/25/17 Furosemide [Lasix -] 20 mg PO DAILY #30 tablet 03/25/17 Spironolactone [Aldactone -] 25 mg PO DAILY #30 tablet 03/25/17 REVIEW OF SYSTEMS CONSTITUTIONAL: generalized weakness Absent: fever, chills, diaphoresis, loss of appetite, weight change HEENT: Absent: rhinorrhea, nasal congestion, throat pain, throat swelling, difficulty swallowing, mouth swelling, ear pain, eye pain, visual changes CARDIOVASCULAR: Absent: chest pain, syncope, palpitations, irregular heart rate, lightheadedness , peripheral edema RESPIRATORY: shortness of breath, orthopnea Absent: cough, dyspnea with exertion, wheezing, stridor, hemoptysis GASTROINTESTINAL: Absent: abdominal pain, abdominal distension, nausea, vomiting, diarrhea, constipation, melena, hematochezia GENITOURINARY: Absent: dysuria, frequency, urgency, hesitancy, hematuria, flank pain, genital pain MUSCULOSKELETAL: Absent: myalgia, arthralgia, joint swelling, back pain, neck pain SKIN: Absent: rash, itching, pallor HEMATOLOGIC/IMMUNOLOGIC: Absent: easy bleeding, easy bruising, lymphadenopathy, frequent infections ENDOCRINE: Absent: unexplained weight gain, unexplained weight loss, heat intolerance, cold intolerance NEUROLOGIC: Absent: headache, focal weakness or paresthesias, dizziness, unsteady gait, seizure, mental status changes, bladder or bowel incontinence PSYCHIATRIC: Absent: anxiety, depression, suicidal or homicidal ideation, hallucinations. PHYSICAL EXAMINATION Vital Signs - 24 hr 03/30/17 01:42 Temperature 97.4 F L Pulse Rate 81 Respiratory 16 Rate Blood Pressure 135/100 O2 Sat by Pulse 99 Oximetry (%) GENERAL: Awake, alert, and fully oriented, in no acute distress. HEAD: Normal with no signs of trauma. EYES: Pupils equal, round and reactive to light, extraocular movements intact, sclera anicteric, conjunctiva clear. No lid lag. EARS, NOSE, THROAT: Ears normal, nares patent, oropharynx clear without exudates. Moist mucous membranes. NECK: Normal range of motion, supple without lymphadenopathy, JVD, or masses. LUNGS: Breath sounds equal, diminished to bases. No wheezes, and no crackles. No accessory muscle use. HEART: Regular rate and rhythm, normal S1 and S2 without murmur, rub or gallop. ABDOMEN: Soft, nontender, not distended, normoactive bowel sounds, no guarding, no rebound, no masses. No hepatomegaly or splenomegaly. MUSCULOSKELETAL: Normal range of motion at all joints. No bony deformities or tenderness. No CVA tenderness. UPPER EXTREMITIES: 2+ pulses, warm, well-perfused. No cyanosis. No clubbing. No peripheral edema. LOWER EXTREMITIES: 2+ pulses, warm, well-perfused. No calf tenderness. No peripheral edema. NEUROLOGICAL: Cranial nerves II-XII intact. Normal speech. Normal gait. PSYCHIATRIC: Cooperative. Good eye contact. Appropriate mood and affect. SKIN: Warm, dry, normal turgor, no rashes or lesions noted, normal capillary refill. Laboratory Results - last 24 hr 03/30/17 03/30/17 03/30/17 02:00 02:00 02:00 WBC 5.0 RBC 5.15 Hgb 15.4 Hct 46.6 MCV 90.6 MCHC 33.0 RDW 14.1 Plt Count 174 D MPV 9.2 D Neutrophils % 47.0 D Lymphocytes % 38.5 D Monocytes % 12.6 H Eosinophils % 1.3 Basophils % 0.6 INR 1.22 H Sodium 135 L Potassium 6.0 H D Chloride 97 L Carbon Dioxide 31 Anion Gap 7 L BUN 18 Creatinine 1.2 Creat Clearance w eGFR > 60 Random Glucose 139 H D Calcium 9.3 Total Bilirubin 0.9 D AST 28 ALT 49 Alkaline Phosphatase 48 Creatine Kinase 258 D Creatine Kinase Index 1.7 CK-MB (CK-2) 4.449 H CK-MB (CK-2) Rel Index Troponin I < 0.02 B-Natriuretic Peptide Total Protein 7.8 Albumin 4.3 03/30/17 03/30/17 03/30/17 02:00 02:00 03:20 WBC RBC Hgb Hct MCV MCHC RDW Plt Count MPV Neutrophils % Lymphocytes % Monocytes % Eosinophils % Basophils % INR Sodium Potassium 4.9 Chloride Carbon Dioxide Anion Gap BUN Creatinine Creat Clearance w eGFR Random Glucose Calcium Total Bilirubin AST ALT Alkaline Phosphatase Creatine Kinase Creatine Kinase Index CK-MB (CK-2) CK-MB (CK-2) Rel Index Cancelled Troponin I B-Natriuretic Peptide 1075.98 H Total Protein Albumin Heart Score/ECG Review - ECG Impressions Comment:: EKG read 01:47- sinus rhythm 85 bpm with 1st deg AV block ASSESSMENT/PLAN: This is a 51 y/o male with a PMHx of: HTN, MVP/Severe MR, s/p Mitral Valve Replacement (2012). Who presents to the ED SOB and weakness. Admitted CHF Exacerbation, Acute on Chronic Systolic HF for further evaluation of their emergent condition. 1. Cardiac: CHF Exacerbation//Acute on Chronic HF//HTN - Admit MS - Appreciate Cardiology Consult - Chest Xray image- pulmonary vascular congestion - Lasix given in ED - Continue Lasix - Continue home meds - Strict INOs - Daily weights - Echo done 03/2017 showed- dilated LV with severely reduced EF, apex not well visualized apical thrombus cannot be r/o - Cardiac Enzymes neg x1 - Serial Enzymes - Monitor vitals - Low Na Diet 2. Elevated Glucose - HgBA1C in am - f/u with PMD 3. FEN - Tolerates PO Fluids - Replete lytes prn - Low Na Diet 4. DVT Prophylaxis - OOB - Heparin SQ Code Status: Full Code Problem List - Problem (1) CHF exacerbation Code(s): I50.9 - HEART FAILURE, UNSPECIFIED Qualifiers: Congestive heart failure type: unspecified congestive heart failure type Qualified Code(s): I50.9 - Heart failure, unspecified (2) Acute on chronic systolic (congestive) heart failure Code(s): I50.23 - ACUTE ON CHRONIC SYSTOLIC (CONGESTIVE) HEART FAILURE (3) Elevated random blood glucose level Code(s): R73.09 - OTHER ABNORMAL GLUCOSE (4) HTN (hypertension) Code(s): I10 - ESSENTIAL (PRIMARY) HYPERTENSION (5) History of mitral valve replacement with bioprosthetic valve Code(s): Z95.3 - PRESENCE OF XENOGENIC HEART VALVE (6) DVT prophylaxis Code(s): ICJ1277 - Visit type - Emergency Visit Emergency Visit: Yes ED Registration Date: 03/30/17 Care time: The patient presented to the Emergency Department on the above date and was hospitalized for further evaluation of their emergent condition. - New Patient This patient is new to me today: Yes Date on this admission: 03/30/17 - Critical Care Critical Care patient: No
[2017-03-30] MEDS: HEPARIN NA (PORCINE) 5,000 UNITS/ML 1ML VIAL SQ SCH ×3 (06:23→21:58)
[2017-03-30 08:21] LABS: MAGNESIUM 2.5 mg/dL (1.8-2.4); PHOSPHOROUS 3.9 mg/dL (2.5-4.9)
[2017-03-30 08:22] LABS: TROPONIN I < 0.02 ng/ml (0.00-0.05)
[2017-03-30] MEDS: ENALAPRIL MALEATE 2.5 MG TABLET (FP) PO SCH (12:01)
[2017-03-30] MEDS: ASPIRIN 81 MG CHEWABLE TABLETS PO SCH (12:01)
[2017-03-30] MEDS: CARVEDILOL 3.125 MG TABLET (FP) PO SCH ×2 (12:01→21:57)
[2017-03-30] MEDS ORDERED: ASPIRIN COATED 81 MG TABLET.EC ONE (12:03)
[2017-03-30] MEDS ORDERED: ENALAPRIL MALEATE 5 MG TABLET (FP) ONE (12:03)
[2017-03-30] MEDS ORDERED: CARVEDILOL 3.125 MG TABLET (FP) ONE (12:03)
--- NOTE | 2017-03-30 13:18 | CON.CARD ---
Consult Consult Specialty:: cardiology Reason for Consultation:: shortness of breath; hx severe systolic CHF - History of Present Illness History of Present Illness: The patient is a 51-year-old male, with a significant past medical history of non-ischemia dilated cardiomyopathy (patent coronary arteries reported on study done in the [place] 2012), with severe LV dysfunction moderate LVE, global hypokinesis on 03/2017 ECHO, chronic alcoholism, hypertension, s/p mitral valve (not aortic valve) replacement (2012), anxiety/panic/depression, who presents to ED with shortness of breath and weakness s/p taking Benadryl. Pt states that he took the pill before bed and soon after began to feel sweaty, short of breath, and weak. Pts symptoms have now resolved. Pt's says he was anxious and depressed when he had to undergo cardiac valvular surgery in 2012, but had been stable until recently. Upon learning last week of the severity of his heart condition, he has again become anxious, panicky, and depressed. The patient denies any fever, chills, nausea, vomiting, diarrhea, or abdominal pain. The patient denies any chest pain. - History Source History Provided By: Patient, Medical Record Limitations to Obtaining History: Other (his provides much of his history) - Past Medical History Cardio/Vascular: Yes: CHF, HTN, Other (s/p mvr/avr) - Past Surgical History Past Surgical History: Yes: Valve Replacement (mitral valve pericardial bioprosthetic ) Additional Surgical History: coronary angiogram 2012: patent arteries - Alcohol/Substance Use Hx Alcohol Use: Yes (OCC) - Smoking History Smoking history: Never smoked Have you smoked in the past 12 months: No Home Medications - Allergies Allergies/Adverse Reactions: Allergies Allergy/AdvReac Type Severity Reaction Status Date / Time No Known Allergies Allergy Verified 03/30/17 01:42 - Home Medications Home Medications: Ambulatory Orders Aspirin [ASA -] 81 mg PO DAILY #30 tab 03/25/17 Carvedilol 3.125 mg PO DAILY #30 tab 03/25/17 Diphenhydramine HCl [Benadryl Capsule -] 25 mg PO HS PRN #15 tab 03/25/17 Enalapril Maleate 2.5 mg PO DAILY #30 tab 03/25/17 Furosemide [Lasix -] 20 mg PO DAILY #30 tablet 03/25/17 Spironolactone [Aldactone -] 25 mg PO DAILY #30 tablet 03/25/17 Family Disease History - Family Disease History Family History: Denies Review of Systems - Review of Systems Constitutional: reports: Malaise, Weakness Eyes: reports: No Symptoms HENT: reports: No Symptoms Neck: reports: No Symptoms Cardiovascular: reports: Shortness of Breath Respiratory: reports: SOB on Exertion Neurological: reports: No Symptoms Psychiatric: reports: Anxiety, Depression, Panic - Risk Factors Known Risk Factors: Yes: Age, Gender, Other (dilated cardiomyopathy with severe LV dysfunction) Vital Signs: Vital Signs Temperature 97.4 F L 03/30/17 01:42 Pulse Rate 90 03/30/17 10:45 Respiratory Rate 20 03/30/17 10:45 Blood Pressure 123/77 03/30/17 10:45 O2 Sat by Pulse Oximetry (%) 100 03/30/17 10:45 Constitutional: Yes: Anxious, Moderate Distress, Other (panic) Eyes: Yes: WNL HENT: Yes: WNL Neck: Yes: WNL Respiratory: Yes: Diminished Gastrointestinal: Yes: Soft Renal/: Yes: Anuria Cardiovascular: Yes: Regular Rate and Rhythm JVD: Yes Carotid Bruit: No PMI: Displaced Heart Sounds: Yes: S1, S2 Murmur: Yes: Systolic Murmur, Grade 2 Extremities: Yes: Cool Edema: No Peripheral Pulses WNL: Yes Integumentary: Yes: WNL Neurological: Yes: Alert, Oriented Psychiatric: Yes: Other - Other Data Labs, Other Data: INR, PTT INR 1.22 (0.82-1.09) H 03/30/17 02:00 Troponin, BNP 03/30/17 07:35 Troponin I < 0.02 Troponin, BNP 03/30/17 07:35 Troponin I < 0.02 Prior Cardiac Procedures: Valve Surgery, Other (coronary angiogram) Imaging - Results Chest X-ray: Image Reviewed (enlarged heart; no acute cardiopulmonary pathology) EKG: Image Reviewed (NSR) Problem List - Problems (1) Acute on chronic systolic (congestive) heart failure Assessment/Plan: A long discussion was had with pt and his (who states she is an MD in the [place]). He has been on carvedilol 3.125 mg, but only taking it once a day at home. [place] very anxious while at work 01/25/2017; that night, woke up in a panic and short of breath. Hx anxiety/depression (was on alprazolam). F/u initial hyperkalemia carefully; it apparently reduced from 6.0 to 4.9 after a dose of furosemide; pt is on lisionopril 2.5 mg daily. Problematic restarting spironolactone given tendency to elevated K+. Start hydralazine and isordil; increase dosages as tolerated. On furosemide; f/u Is and OTs, daily weight, BUN/Cr, and electrolytes. F/u TSH and lipids. Recommend placemment of ICD vest while pt's medications are optimized over the next several weeks, with future decision on need for permanent ICD based on repeat ECHO after all medications are optimally dosed. Recommend psychological counseling, and strongly consider starting SSRI and/or benzodiazepine. Code(s): I50.23 - ACUTE ON CHRONIC SYSTOLIC (CONGESTIVE) HEART FAILURE (2) HTN (hypertension) Code(s): I10 - ESSENTIAL (PRIMARY) HYPERTENSION (3) History of mitral valve replacement with bioprosthetic valve Assessment/Plan: see ECHO results from admission last week. Code(s): Z95.3 - PRESENCE OF XENOGENIC HEART VALVE (4) Anxiety and depression Assessment/Plan: see under "CHF". Code(s): F41.9 - ANXIETY DISORDER, UNSPECIFIED F32.9 - MAJOR DEPRESSIVE DISORDER, SINGLE EPISODE, UNSPECIFIED
[2017-03-30] MEDS: ISOSORBIDE DINITRATE 5 MG TABLET PO SCH ×2 (14:00→20:30)
[2017-03-30] MEDS: hydrALAZINE HCL 10 MG TABLET PO SCH ×2 (14:00→21:57)
--- NOTE | 2017-03-30 14:07 | EKG ---
Test Reason : Blood Pressure : / mmHG Vent. Rate : 085 BPM Atrial Rate : 085 BPM P-R Int : 304 ms QRS Dur : 100 ms QT Int : 384 ms P-R-T Axes : 017 027 031 degrees QTc Int : 456 ms SINUS RHYTHM WITH 1ST DEGREE A-V BLOCK NONSPECIFIC T WAVE ABNORMALITY ABNORMAL ECG WHEN COMPARED WITH ECG OF 24-MAR-2017 05:43, T WAVE VARIATION Confirmed by CHARLEY DURBIN MD ([id number]) on 03/30/2017 2:07:32 PM Referred By: Confirmed By:CHARLEY DURBIN MD
[2017-03-30 15:44] LABS: ALBUMIN 4.2 g/dl (3.4-5.0); ANION GAP 10 (8-16); BILIRUBIN,TOTAL 0.9 mg/dL (0.2-1.0); CALCIUM 9.5 mg/dL (8.5-10.1); CO2 32 mmol/L (21-32); COCKROFT - GAULT 103.26; CREATININE 1.2 mg/dL (0.7-1.3); GLUCOSE,RANDOM 125 mg/dL (74-106); SGOT/AST 28 U/L (15-37); SGPT/ALT 51 U/L (12-78)
[2017-03-30 15:47] LABS: ALK PHOS 49 U/L (45-117); TROPONIN I < 0.02 ng/ml (0.00-0.05)
[2017-03-31 04:16] VITALS: BMI 28.8
[2017-03-31] MEDS: HEPARIN NA (PORCINE) 5,000 UNITS/ML 1ML VIAL SQ SCH ×3 (06:19→21:55)
[2017-03-31 07:30] LABS: MCH 30.2 pg (25.7-33.7); MCHC 33.4 g/dl (32.0-35.9); MEAN CELL VOLUME 90.5 fl (80-96); MEAN PLT VOLUME 9.4 fl (7.5-11.1); PLATELET COUNT 152 K/MM3 (134-434); WHITE BLOOD COUNT 4.8 K/mm3 (4.0-10.0)
[2017-03-31 08:00] LABS: ALBUMIN 4.1 g/dl (3.4-5.0); ANION GAP 13 (8-16); CALCIUM 9.2 mg/dL (8.5-10.1); CO2 27 mmol/L (21-32); COCKROFT - GAULT 125.59; GLUCOSE,RANDOM 101 mg/dL (74-106); SGOT/AST 29 U/L (15-37); SGPT/ALT 52 U/L (12-78)
[2017-03-31 08:01] LABS: ALK PHOS 48 U/L (45-117); BILIRUBIN,TOTAL 1.4 mg/dL (0.2-1.0); TOT PROT 7.8 g/dl (6.4-8.2)
[2017-03-31 09:24] LABS: CHOLESTEROL 267 mg/dL (50-200); LDL CHOLESTEROL (ONLY SJRH) 197 mg/dL (5-100); THYROID STIMULATING HORMONE 0.63 uIU/ml (0.358-3.74)
[2017-03-31] MEDS ORDERED: PT OWN MED DRAWER 7, Y5N ONE (09:29)
[2017-03-31] MEDS: ASPIRIN 81 MG CHEWABLE TABLETS PO SCH (10:01)
[2017-03-31] MEDS: hydrALAZINE HCL 10 MG TABLET PO SCH ×2 (10:01→21:56)
[2017-03-31] MEDS: CARVEDILOL 3.125 MG TABLET (FP) PO SCH ×2 (10:01→21:55)
[2017-03-31] MEDS: ISOSORBIDE DINITRATE 5 MG TABLET PO SCH ×2 (10:01→17:31)
[2017-03-31] MEDS: ENALAPRIL MALEATE 2.5 MG TABLET (FP) PO SCH (10:01)
[2017-03-31] MEDS: FUROSEMIDE 40 MG/4 ML INJECTABLE VIAL IVPUSH SCH (10:01)
--- NOTE | 2017-03-31 10:49 | PN ---
Progress Note, Physician History of Present Illness: The patient is a 51-year-old male, with a significant past medical history of non-ischemia dilated cardiomyopathy (patent coronary arteries reported on study done in the [place] 2012), with severe LV dysfunction moderate LVE, global hypokinesis on 03/2017 ECHO, chronic alcoholism, hypertension, s/p mitral valve (not aortic valve) replacement (2012), anxiety/panic/depression, who presents to ED with shortness of breath and weakness s/p taking Benadryl. Pt states that he took the pill before bed and soon after began to feel sweaty, short of breath, and weak. Pts symptoms have now resolved. Pt's says he was anxious and depressed when he had to undergo cardiac valvular surgery in 2012, but had been stable until recently. Upon learning last week of the severity of his heart condition, he has again become anxious, panicky, and depressed. The patient denies any fever, chills, nausea, vomiting, diarrhea, or abdominal pain. The patient denies any chest pain. - Current Medication List Current Medications: Active Medications Aspirin (Asa -) 81 mg PO DAILY [facility] Last Admin: 03/31/17 10:01 Dose: 81 mg Carvedilol (Coreg -) 3.125 mg PO BID [facility] Last Admin: 03/31/17 10:01 Dose: 3.125 mg Enalapril Maleate (Vasotec -) 2.5 mg PO DAILY [facility] Last Admin: 03/31/17 10:01 Dose: 2.5 mg Furosemide (Lasix Injection -) 40 mg IVPUSH DAILY [facility] Last Admin: 03/31/17 10:01 Dose: 40 mg Heparin Sodium (Porcine) (Heparin -) 5,000 unit SQ TID [facility] Last Admin: 03/31/17 06:19 Dose: Not Given Hydralazine HCl (Apresoline -) 10 mg PO BID [facility] Last Admin: 03/31/17 10:01 Dose: 10 mg Isosorbide Dinitrate (Isordil -) 5 mg PO BIDISORDIL [facility] Last Admin: 03/31/17 10:01 Dose: 5 mg - Objective Vital Signs: Vital Signs Temperature 98.2 F 03/31/17 09:00 Pulse Rate 88 03/31/17 09:00 Respiratory Rate 14 03/31/17 09:00 Blood Pressure 112/70 03/31/17 09:00 O2 Sat by Pulse Oximetry (%) 97 03/30/17 21:46 Eyes: Yes: WNL, Conjunctiva Clear, EOM Intact HENT: Yes: WNL, Atraumatic, Normocephalic Neck: Yes: WNL, Supple, Trachea Midline Cardiovascular: Yes: WNL, Regular Rate and Rhythm Respiratory: Yes: WNL, Regular, CTA Bilaterally Gastrointestinal: Yes: WNL, Normal Bowel Sounds Genitourinary: Yes: WNL Musculoskeletal: Yes: WNL Extremities: Yes: WNL Edema: No Integumentary: Yes: WNL Neurological: Yes: WNL, Alert, Oriented ...Motor Strength: WNL Psychiatric: Yes: WNL Labs: CBC, BMP 03/31/17 05:35 03/31/17 05:35 INR, PTT INR 1.22 (0.82-1.09) H 03/30/17 02:00 Assessment/Plan Problems (1) Acute on chronic systolic (congestive) heart failure Assessment/Plan: A long discussion was had with pt and his (who states she is an MD in the [place]). He has been on carvedilol 3.125 mg, but only taking it once a day at home. [place] very anxious while at work 01/25/2017; that night, woke up in a panic and short of breath. Hx anxiety/depression (was on alprazolam). F/u initial hyperkalemia carefully; it apparently reduced from 6.0 to 4.9 after a dose of furosemide; pt is on lisionopril 2.5 mg daily. Problematic restarting spironolactone given tendency to elevated K+. Start hydralazine and isordil; increase dosages as tolerated. On furosemide; f/u Is and OTs, daily weight, BUN/Cr, and electrolytes. F/u TSH and lipids. Recommend placemment of ICD vest while pt's medications are optimized over the next several weeks, with future decision on need for permanent ICD based on repeat ECHO after all medications are optimally dosed. Recommend psychological counseling, and strongly consider starting SSRI and/or benzodiazepine. Code(s): I50.23 - ACUTE ON CHRONIC SYSTOLIC (CONGESTIVE) HEART FAILURE (2) HTN (hypertension) Code(s): I10 - ESSENTIAL (PRIMARY) HYPERTENSION (3) History of mitral valve replacement with bioprosthetic valve Assessment/Plan: see ECHO results from admission last week. Code(s): Z95.3 - PRESENCE OF XENOGENIC HEART VALVE (4) Anxiety and depression Assessment/Plan: see under "CHF". Code(s): F41.9 - ANXIETY DISORDER, UNSPECIFIED F32.9 - MAJOR DEPRESSIVE DISORDER, SINGLE EPISODE, UNSPECIFIED
--- NOTE | 2017-03-31 12:42 | PN ---
Progress Note (short form) - Note Progress Note: Subjective: The patient was seen and examined at the bedside, he denies any complaints at this time Current Medications Generic Name Dose Route Start Last Admin Trade Name Denzel PRN Reason Stop Dose Admin Aspirin 81 mg 03/30/17 10:00 03/31/17 10:01 Asa - PO 81 mg DAILY [facility] Administration Carvedilol 3.125 mg 03/30/17 10:00 03/31/17 10:01 Coreg - PO 3.125 mg BID [facility] Administration Enalapril Maleate 2.5 mg 03/30/17 10:00 03/31/17 10:01 Vasotec - PO 2.5 mg DAILY [facility] Administration Furosemide 40 mg 03/31/17 10:00 03/31/17 10:01 Lasix Injection - IVPUSH 40 mg DAILY [facility] Administration Heparin Sodium (Porcine) 5,000 unit 03/30/17 06:00 03/31/17 06:19 Heparin - SQ Not Given TID [facility] Hydralazine HCl 10 mg 03/30/17 13:30 03/31/17 10:01 Apresoline - PO 10 mg BID [facility] Administration Isosorbide Dinitrate 5 mg 03/30/17 13:30 03/31/17 10:01 Isordil - PO 5 mg BIDISORDIL [facility] Administration Objective: Vital Signs Period Temp Pulse Resp BP Sys/Dukes Pulse Ox Last 24 Hr 97.8 F-98.6 F 85-88 14-20 110-122/66-75 97-97 Physical Exam: General: NAD, A&Ox3 Lungs: CTA bilaterally Heart: RRR, S1S2, grade 2 systolic murmur, S1S2 Abd: Soft, non-tender, non-distended. Normoactive bowel sounds Ext: Warm, well-perfused. 2+ DP/PT bilaterally Neuro: CN 2-12 intact CBCD WBC 4.8 K/mm3 (4.0-10.0) 03/31/17 05:35 RBC 5.21 M/mm3 (4.00-5.60) 03/31/17 05:35 Hgb 15.8 GM/dL (11.7-16.9) 03/31/17 05:35 Hct 47.2 % (35.4-49) 03/31/17 05:35 MCV 90.5 fl (80-96) 03/31/17 05:35 MCHC 33.4 g/dl (32.0-35.9) 03/31/17 05:35 RDW 14.0 % (11.9-15.9) 03/31/17 05:35 Plt Count 152 K/MM3 (134-434) 03/31/17 05:35 MPV 9.4 fl (7.5-11.1) 03/31/17 05:35 CMP Sodium 137 mmol/L (136-145) 03/31/17 05:35 Potassium 4.2 mmol/L (3.5-5.1) 03/31/17 05:35 Chloride 97 mmol/L (98-107) L 03/31/17 05:35 Carbon Dioxide 27 mmol/L (21-32) 03/31/17 05:35 Anion Gap 13 (8-16) 03/31/17 05:35 BUN 16 mg/dL (7-18) 03/31/17 05:35 Creatinine 1.0 mg/dL (0.7-1.3) 03/31/17 05:35 Creat Clearance w eGFR > 60 (>60) 03/31/17 05:35 Random Glucose 101 mg/dL (74-106) 03/31/17 05:35 Calcium 9.2 mg/dL (8.5-10.1) 03/31/17 05:35 Total Bilirubin 1.4 mg/dL (0.2-1.0) H D 03/31/17 05:35 AST 29 U/L (15-37) 03/31/17 05:35 ALT 52 U/L (12-78) 03/31/17 05:35 Alkaline Phosphatase 48 U/L (45-117) 03/31/17 05:35 Total Protein 7.8 g/dl (6.4-8.2) 03/31/17 05:35 Albumin 4.1 g/dl (3.4-5.0) 03/31/17 05:35 CARDIAC ENZYMES Creatine Kinase 170 IU/L (39-308) D 03/30/17 15:00 Troponin I < 0.02 ng/ml (0.00-0.05) 03/30/17 15:00 Assessment: This is a 51 year old male with PMHx of Hypertension, MVP/Severe MR , s/p Mitral Valve replacement ([place], 2013), who presents to the emergency department with SOB and weakness after taking Benadryl and his other meds Plan: 1) Cardiology: Acute on chronic systolic heart failure - Started on Hydralazine and Isordil - Continue Lasix - Continue Coreg - ECHO 03/24: LV systolic function is severely reduced. Severe global hypokinesis of the left ventricle. Left atrium is moderately dilated. Rigth atrium is moderately dilated. There is bioprosthetic mitral valve - For [employer] life vest placement today - Will need repeat ECHO once medications are optimized Hyperlipidemia - LDL above goal, start Lipitor 2) F/E/N: - Monitor electrolytes - Sodium controlled diet 3) Prophylaxis: - OOB ambulating - Heparin 5,000u sq tid 4) Dispo: - Once condition improves CODE STATUS: FULL CODE Visit type - Emergency Visit Emergency Visit: Yes ED Registration Date: 03/30/17 Care time: The patient presented to the Emergency Department on the above date and was hospitalized for further evaluation of their emergent condition. - New Patient This patient is new to me today: Yes Date on this admission: 03/31/17 - Critical Care Critical Care patient: No
[2017-03-31] MEDS ORDERED: LORazepam 1 MG TABLET PO ONE (13:00)
--- NOTE | 2017-03-31 14:07 | CON.PSY ---
Psychiatry Consult Chief Complaint: staffvreports that patient complains of anxiety, ? depression. Symptoms: reports: Anxiety - Previous Psychiatric Treatment Outpatient: None Inpatient: None - Previous Substance Abuse Treatment Outpatient: None Inpatient: None - Current Medications Current Medications: Active Medications Aspirin (Asa -) 81 mg PO DAILY [facility] Last Admin: 03/31/17 10:01 Dose: 81 mg Atorvastatin Calcium (Lipitor -) 20 mg PO [facility] Carvedilol (Coreg -) 3.125 mg PO BID [facility] Last Admin: 03/31/17 10:01 Dose: 3.125 mg Enalapril Maleate (Vasotec -) 2.5 mg PO DAILY [facility] Last Admin: 03/31/17 10:01 Dose: 2.5 mg Furosemide (Lasix Injection -) 40 mg IVPUSH DAILY [facility] Last Admin: 03/31/17 10:01 Dose: 40 mg Heparin Sodium (Porcine) (Heparin -) 5,000 unit SQ TID [facility] Last Admin: 03/31/17 13:56 Dose: 5,000 unit Hydralazine HCl (Apresoline -) 10 mg PO BID [facility] Last Admin: 03/31/17 10:01 Dose: 10 mg Isosorbide Dinitrate (Isordil -) 5 mg PO BIDISORDIL [facility] Last Admin: 03/31/17 10:01 Dose: 5 mg - Allergies Allergies: Allergies Allergy/AdvReac Type Severity Reaction Status Date / Time No Known Allergies Allergy Verified 03/30/17 01:42 - Current Living Status Usual Living Arrangement: With Spouse - Current Mental Status Evaluation Appearance: Well Groomed Attitude: Guarded - Affect Affect: Constrictive Appropriateness: Appropriate to Content - Mood Mood: Anxious - Speech/Language Expressive: Coherent - Psychomotor Activity Psychomotor Activity: Normal - Thought Process Thought Process: Intact - Thought Content Hallucinations: Absent Delusions: Absent - Self Perception Self Perception: No Impairment - Cognition Attention: Alert Orientation: Time Memory, Immediate Recall: Intact Memory, Short Term: 3/3 Memory, Remote with Promptin/3 - Concentration Serial Sevens Intact: No Simple Calculations Intact: No - Abstraction Proverb Interpretation: Intact Judgement: Intact - Insight Insight: Intact - Impulse Control Impulse Control: Good Control - Suicidal Ideation Suicidal Ideation: No - Homicidal Ideation Homicidal Ideation: No Assessment/Plan start Ativan 1mg po bid for anxiety. no nneed for antidepressants at t5his npoint.
[2017-03-31] MEDS: LORazepam 1 MG TABLET PO PRN (21:56)
[2017-03-31] MEDS ORDERED: ATORVASTATIN CA 20 MG TABLET (FP) PO SCH (22:00)
[2017-04-01] MEDS: HEPARIN NA (PORCINE) 5,000 UNITS/ML 1ML VIAL SQ SCH ×2 (07:10→15:15)
[2017-04-01 09:20] LABS: ALBUMIN 4.1 g/dl (3.4-5.0); ALK PHOS 47 U/L (45-117); ANION GAP 9 (8-16); CALCIUM 9.4 mg/dL (8.5-10.1); CO2 29 mmol/L (21-32); COCKROFT - GAULT 122.56; GLUCOSE,RANDOM 104 mg/dL (74-106); SGOT/AST 29 U/L (15-37); SGPT/ALT 50 U/L (12-78); TOT PROT 7.5 g/dl (6.4-8.2)
[2017-04-01] MEDS ORDERED: PT OWN MED DRAWER 7, Y5N ONE ×2 (09:45→09:58)
--- NOTE | 2017-04-01 09:50 | PN ---
Progress Note, Physician History of Present Illness: The patient is a 51-year-old male, with a significant past medical history of non-ischemia dilated cardiomyopathy (patent coronary arteries reported on study done in the [place] 2012), with severe LV dysfunction moderate LVE, global hypokinesis on 03/2017 ECHO, chronic alcoholism, hypertension, s/p mitral valve (not aortic valve) replacement (2012), anxiety/panic/depression, who presents to ED with shortness of breath and weakness s/p taking Benadryl. Pt states that he took the pill before bed and soon after began to feel sweaty, short of breath, and weak. Pts symptoms have now resolved. Pt's says he was anxious and depressed when he had to undergo cardiac valvular surgery in 2012, but had been stable until recently. Upon learning last week of the severity of his heart condition, he has again become anxious, panicky, and depressed. The patient denies any fever, chills, nausea, vomiting, diarrhea, or abdominal pain. The patient denies any chest pain. - Current Medication List Current Medications: Active Medications Aspirin (Asa -) 81 mg PO DAILY [facility] Last Admin: 03/31/17 10:01 Dose: 81 mg Atorvastatin Calcium (Lipitor -) 20 mg PO HS [facility] Last Admin: 03/31/17 21:55 Dose: 20 mg Carvedilol (Coreg -) 3.125 mg PO BID [facility] Last Admin: 03/31/17 21:55 Dose: 3.125 mg Enalapril Maleate (Vasotec -) 2.5 mg PO DAILY [facility] Last Admin: 03/31/17 10:01 Dose: 2.5 mg Furosemide (Lasix Injection -) 40 mg IVPUSH DAILY [facility] Last Admin: 03/31/17 10:01 Dose: 40 mg Heparin Sodium (Porcine) (Heparin -) 5,000 unit SQ TID [facility] Last Admin: 04/01/17 07:10 Dose: 5,000 unit Hydralazine HCl (Apresoline -) 10 mg PO BID [facility] Last Admin: 03/31/17 21:56 Dose: 10 mg Isosorbide Dinitrate (Isordil -) 5 mg PO BIDISORDIL [facility] Last Admin: 03/31/17 17:31 Dose: 5 mg Lorazepam (Ativan -) 1 mg PO BID PRN PRN Reason: ANXIETY Last Admin: 03/31/17 21:56 Dose: 1 mg - Objective Vital Signs: Vital Signs Temperature 96.0 F L 04/01/17 05:00 Pulse Rate 100 H 04/01/17 05:00 Respiratory Rate 18 04/01/17 05:00 Blood Pressure 97/58 04/01/17 05:00 O2 Sat by Pulse Oximetry (%) 97 03/31/17 21:00 Labs: CBC, BMP 03/31/17 05:35 04/01/17 06:00 INR, PTT INR 1.22 (0.82-1.09) H 03/30/17 02:00 Problem List - Problems (1) Acute on chronic systolic (congestive) heart failure Assessment/Plan: Placement of Life-Vest. Optimize anti-CHF medications. Pt may be followed up from cardiac standpoint as an outpatient. Code(s): I50.23 - ACUTE ON CHRONIC SYSTOLIC (CONGESTIVE) HEART FAILURE (2) HTN (hypertension) Code(s): I10 - ESSENTIAL (PRIMARY) HYPERTENSION (3) History of mitral valve replacement with bioprosthetic valve Assessment/Plan: see ECHO results from admission last week. Code(s): Z95.3 - PRESENCE OF XENOGENIC HEART VALVE (4) Anxiety and depression Code(s): F41.9 - ANXIETY DISORDER, UNSPECIFIED F32.9 - MAJOR DEPRESSIVE DISORDER, SINGLE EPISODE, UNSPECIFIED
[2017-04-01] MEDS ORDERED: CARVEDILOL 6.25 MG TABLET (FP) PO SCH (10:00)
[2017-04-01] MEDS: hydrALAZINE HCL 10 MG TABLET PO SCH (10:29)
[2017-04-01] MEDS: ENALAPRIL MALEATE 2.5 MG TABLET (FP) PO SCH (10:29)
[2017-04-01] MEDS: FUROSEMIDE 40 MG/4 ML INJECTABLE VIAL IVPUSH SCH (10:30)
[2017-04-01] MEDS: ASPIRIN 81 MG CHEWABLE TABLETS PO SCH (10:30)
[2017-04-01] MEDS: ISOSORBIDE DINITRATE 5 MG TABLET PO SCH ×2 (10:30→18:34)
[2017-04-01] MEDS: LORazepam 1 MG TABLET PO PRN (10:36)
[2017-04-01 15:22] VITALS: BP 114/57; PULSE 112; TEMP 98
--- NOTE | 2017-04-01 17:43 | DS ---
Physical Examination Vital Signs: Vital Signs Temperature 98 F 04/01/17 15:21 Pulse Rate 112 H 04/01/17 15:21 Respiratory Rate 20 04/01/17 15:21 Blood Pressure 114/57 04/01/17 15:21 O2 Sat by Pulse Oximetry (%) 98 04/01/17 10:00 Labs: CBC, BMP 03/31/17 05:35 04/01/17 06:00 Discharge Summary Reason For Visit: CHF Current Active Problems Anxiety and depression (Acute) CHF exacerbation (Acute) DVT prophylaxis (Acute) Elevated random blood glucose level (Acute) Condition: Improved - Instructions Diet, Activity, Other Instructions: Please return to the ED with new, persistent, or worsening symptoms. Please follow-up with providers as indicated. You were fitted with you [employer] Life Vest today. Continue wearing as instructed. Call Dr. Garcia's office with any questions regarding your life vest. Referrals: Abiodun Forbes MD [Primary Care Provider] - 1 Week Samm Garcia MD [Staff Physician] - (Please follow-up with Dr. Garcia within 3-5 days. ) Disposition: [facility]/HOME HEALTH CARE - Home Medications Comprehensive Discharge Medication List: Ambulatory Orders Aspirin [ASA -] 81 mg PO DAILY #30 tab 03/25/17 Enalapril Maleate 2.5 mg PO DAILY #30 tab 03/25/17 Atorvastatin Ca [Lipitor] 20 mg PO HS #30 tablet 04/01/17 Carvedilol [Coreg -] 6.25 mg PO BID #60 tablet 04/01/17 Furosemide [Lasix] 40 mg PO DAILY #30 tablet 04/01/17 Hydralazine HCl [Apresoline -] 10 mg PO BID #60 tablet 04/01/17 Isosorbide Dinitrate [Isordil -] 5 mg PO BIDISORDIL #60 tablet 04/01/17 Lorazepam [Ativan] 1 mg PO BID PRN #20 tablet MDD 2mg 04/01/17
== END 2017-04-01 18:34 | disposition home health service (06) | DRG 194 ==
LOC: JER 01:35 → JERBED 04:46 → J4W 21:35
PROVIDERS: ADMIT Internal Medicine; ATTEND Registered Nurse
DX: I11.0 Hypertensive heart disease with heart failure (principal); I50.23 Acute on chronic systolic (congestive) heart failure; Z95.3 Presence of xenogenic heart valve; F32.9 Major depressive disorder, single episode, unspecified; F41.9 Anxiety disorder, unspecified; I42.0 Dilated cardiomyopathy; R73.09 Other abnormal glucose; F10.20 Alcohol dependence, uncomplicated; E87.5 Hyperkalemia
CPT/HCPCS: 36415; 71010-TC; 80053; 80061; 82550; 82553; 83721; 83735; 83880; 84100; 84132; 84443; 84484; 85025; 85027; 85610; 93005; 93010; 99285-25; J1644

== ENCOUNTER 2021-12-24 11:26 | Emergency (ER) | payer OTHER ==
[2021-12-24 11:50] VITALS: BP 136/87; PULSE 70; TEMP 97.9; BMI 28.0
[2021-12-24] MEDS ORDERED: DEXAMETHASONE LIQUID 0.5 MG/5 ML PO ONE (12:45)
[2021-12-24] MEDS ORDERED: LIDOCAINE 5% TOPICAL PATCH TP ONE (12:45)
[2021-12-24] MEDS ORDERED: KETOROLAC TROMETHAMINE 30 MG/1 ML VIAL IM ONE (12:45)
[2021-12-24] MEDS ORDERED: KETOROLAC TROMETHAMINE 30 MG/1 ML VIAL ONE (12:47)
[2021-12-24] MEDS ORDERED: LIDOCAINE 5% TOPICAL PATCH ONE (12:47)
[2021-12-24] MEDS ORDERED: DEXAMETHASONE SOD PHOSPHATE 10 MG/1 ML VIAL ONE (12:47)
[2021-12-24] MEDS ORDERED: LIDOCAINE PATCH REMOVAL MC SCH (22:00)
== END 2021-12-24 12:56 | disposition home or self-care (01) ==
LOC: JER 11:26 → JERFT 11:26
PROC: 3E0233Z Introduction of Anti-inflammatory into Muscle, Percutaneous Approach (ICD-10-PCS; principal; 2021-12-24)
DX: M54.50 Low back pain, unspecified (principal)
CPT/HCPCS: 99284-25